=== PATIENT | female | born 1940 | race Caucasian/White ===

== ENCOUNTER 2019-11-28 13:43 | Emergency (ER) | payer MEDICARE ==
[2019-11-28 14:24] LABS: BASOPHILS # (AUTO) 0.1 10^3/uL (0.0-0.1); BASOPHILS % (AUTO) 0.5 %; EOSINOPHILS % (AUTO) 0.1 %; LYMPHOCYTES % (AUTO) 20.4 %; MEAN CORPUSCULAR HEMOGLOBIN 30.2 pg (27.0-31.0); MEAN CORPUSCULAR HGB CONC 34.2 g/dL (32.0-36.0); MEAN CORPUSCULAR VOLUME 88.5 fL (81.0-99.0); MEAN PLATELET VOLUME 10.2 fL (7.9-10.8); MONOCYTES # (AUTO) 0.7 10^3/uL (0.0-1.0); MONOCYTES % (AUTO) 6.7 %; NEUTROPHILS # (AUTO) 7.2 10^3/uL (1.5-6.6); PLT - PLATELET COUNT 302 10^3/uL (130-450); RED BLOOD COUNT 4.96 10^6/uL (4.20-5.40); RED CELL DISTRIBUTION WIDTH 12.8 % (12.0-15.0)
[2019-11-28] MEDS ORDERED: diltiaZEM INJ 5 MG/ML VIAL IVP STA (14:26)
[2019-11-28] MEDS ORDERED: PROCAINAMIDE 1,000 MG in SODIUM CHLORIDE 0.9% 240 ML IV STA (14:26)
--- NOTE | 2019-11-28 14:31 | ED Physician Documentation ---
History of Present Illness - Stated complaint Stated Complaint: INCREASE BP/RAPID HR - Chief complaint Chief Complaint: Cardiac - History obtained from History obtained from: Patient, Family - History of Present Illness Timing: Today Pain level max: 0 Pain level now: 0 Improved by: Nothing Worsened by: Nothing - Additonal information Additional information: Patient states that she was feeling "off" and took her blood pressure, noted that her heart rate was high. Has had atrial fibrillation with rapid ventricular response in the past. She did take her metoprolol this morning. She states that her heart rate was approximately 140 at home. No chest pain. No difficulty breathing. No nausea or vomiting. She is on Eliquis as well. She states that she is not usually in A. 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: None : None HEENT: None Psych: None Musculoskeletal: None - Past Surgical History Past Surgical History: Yes /SYNTHETIC FILAMENT SPINNER: Hysterectomy, Oophrectomy - Present Medications Home Medications: Ambulatory Orders Medication Instructions Recorded Confirmed Simvastatin 10 mg PO DAILY 06/09/15 08/13/15 lisinopriL [Lisinopril] 10 mg PO DAILY 06/09/15 08/13/15 - Allergies Allergies/Adverse Reactions: Allergies Allergy/AdvReac Type Severity Reaction Status Date / Time Penicillins Allergy Hives Verified 11/28/19 13:55 - Social History Does the pt smoke?: No Smoking Status: Former smoker Does the pt drink ETOH?: Yes Does the pt have substance abuse?: No - Immunizations Immunizations are current?: Yes - POLST Patient has POLST: No PD ED PE NORMAL - Vitals Vital signs reviewed: Yes - General General: Alert and oriented X 3, No acute distress - HEENT HEENT: Moist mucous membranes - Neck Neck: Supple, no meningeal sign - Cardiac Cardiac: Other (Tachycardic) - Respiratory Respiratory: No respiratory distress, Clear bilaterally - Abdomen Abdomen: Soft, Non tender, Non distended - Derm Derm: Warm and dry - Extremities Extremities: No edema - Neuro Neuro: Alert and oriented X 3 Results - Vitals Vitals: Vital Signs - 24 hr 11/28/19 11/28/19 11/28/19 13:50 14:22 14:30 Temperature 36.6 C 36.9 C Heart Rate 142 H 137 H 142 H Respiratory 24 18 18 Rate Blood Pressure 152/97 H 128/111 H 137/95 H O2 Saturation 98 96 97 11/28/19 11/28/19 11/28/19 14:49 15:00 15:10 Temperature Heart Rate 154 H 134 H 70 Respiratory 97 H 96 H 96 H Rate Blood Pressure 141/89 H 121/102 H 104/54 L O2 Saturation 18 L 14 L 10 L 11/28/19 11/28/19 11/28/19 15:20 15:30 15:40 Temperature Heart Rate 70 70 68 Respiratory 19 17 14 Rate Blood Pressure 101/60 99/69 115/59 L O2 Saturation 96 98 98 Oxygen O2 Source Room air - EKG (time done) 1521 Rate: Rate (enter#) (68) Rhythm: NSR [place]: Normal Intervals: Normal [place] QRS: Normal, LVH Ischemia: Normal ST segments 1356 Rate: Rate (enter#) (140) Rhythm: SVT [place]: Normal Intervals: Normal [place] QRS: Normal Ischemia: Normal ST segments - Labs Labs: Laboratory Tests 11/28/19 11/28/19 14:15 14:15 WBC 10.0 RBC 4.96 Hgb 15.0 Hct 43.9 MCV 88.5 MCH 30.2 MCHC 34.2 RDW 12.8 Plt Count 302 MPV 10.2 Neut # (Auto) 7.2 H Lymph # (Auto) 2.0 [place] # (Auto) 0.7 Eos # (Auto) 0.0 Baso # (Auto) 0.1 Absolute Nucleated RBC 0.00 Nucleated RBC % 0.0 Sodium 138 Potassium 3.8 Chloride 104 Carbon Dioxide 24 Anion Gap 10.0 BUN 10 Creatinine 0.5 Estimated GFR (MDRD) 118 Glucose 142 H Calcium 10.1 Total Bilirubin 0.6 AST 18 ALT 20 Alkaline Phosphatase 84 Total Protein 7.9 Albumin 4.5 Globulin 3.4 Albumin/Globulin Ratio 1.3 Lipase 33 PD MEDICAL DECISION MAKING - ED course Complexity details: reviewed results, re-evaluated patient, considered differential, d/w patient, d/w family ED course: Initial EKG looks like SVT, however likely a flutter with a 2-1 block. Patient converted with procainamide in the emergency department. No chest pain. No shortness of breath. Asymptomatic. We will have her continue her medications at home and follow-up with her doctor. Patient counseled regarding signs and symptoms for which I believe and urgent re-evaluation would be necessary. Patient with good understanding of and agreement to plan and is comfortable going home at this time This document was made in part using voice recognition software. While efforts are made to proofread this document, sound alike and grammatical errors may occur. Departure - Departure Disposition: 01 Home, Self Care Clinical Impression: Atrial fibrillation with RVR Condition: Good Instructions: ED Afib Follow-Up: THOMAS MULLEN [Primary Care Provider] - Within 1 week Comments: Continue your medications at home. Return if you worsen. Discharge Date/Time: 11/28/19 15:54
--- NOTE | 2019-11-28 14:31 | XRAY Report ---
Reason: Chest pain Procedure Date: 11/28/2019 Accession Number: [id number] / [id number] Procedure: XR - Chest 1 View X-Ray CPT Code: 98844 Final Report FULL RESULT: EXAM: CHEST RADIOGRAPHY EXAM DATE: 11/28/2019 02:19 PM. CLINICAL HISTORY: Chest pain. COMPARISON: 06/09/2015 1:48 AM. TECHNIQUE: 1 view. FINDINGS: Lungs/Pleura: No focal opacities evident. No pleural effusion. No pneumothorax. Mediastinum: Within exam limitations, the cardiomediastinal contour is normal. Other: None. IMPRESSION: Normal single view chest. RADIA
[2019-11-28 14:36] LABS: ALBUMIN 4.5 g/dL (3.2-5.5); ALBUMIN/GLOBULIN RATIO 1.3 (1.0-2.2); BILIRUBIN,TOTAL 0.6 mg/dL (0.2-1.0); CALCIUM 10.1 mg/dL (8.5-10.3); CREATININE 0.5 mg/dL (0.4-1.0); TOTAL PROTEIN 7.9 g/dL (6.7-8.2)
[2019-11-28 15:47] VITALS: BP 115/59
== END 2019-11-28 15:54 | disposition home or self-care (01) ==
LOC: ED 13:43
DX: I48.91 Unspecified atrial fibrillation (principal); Z79.01 Long term (current) use of anticoagulants; I10 Essential (primary) hypertension; Z87.891 Personal history of nicotine dependence
CPT/HCPCS: 36415; 71045; 80053; 83690; 85025; 93005; 96365; 96375; 99284; 99285; J2690; 84484

== ENCOUNTER 2021-01-05 19:37 | Emergency (ER) | payer MEDICARE, OTHER ==
[2021-01-05] MEDS ORDERED: ASPIRIN CHEW 81 MG TABLET PO STA (19:47)
--- NOTE | 2021-01-05 19:48 | ED Physician Documentation ---
PD HPI CHEST PAIN - Stated complaint Stated Complaint: CHEST TIGHTNESS - History obtained from History obtained from: Patient - Additional information Additional information: 80-year-old woman with history of paroxysmal atrial fibrillation but no coronary disease. She thinks she developed some chest pressure last night but it was more noticeable around noon today. She still has it just a bit. It radiated to the jaw and made her jaw feel tight. There was no shortness of breath with it but very mild nausea. This does not feel like prior episodes of A. fib. 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: Hysterectomy, Oophrectomy - Present Medications Home Medications: Ambulatory Orders Medication Instructions Recorded Confirmed Simvastatin 10 mg PO DAILY 06/09/15 08/13/15 lisinopriL [Lisinopril] 10 mg PO DAILY 06/09/15 08/13/15 - Allergies Allergies/Adverse Reactions: Allergies Allergy/AdvReac Type Severity Reaction Status Date / Time Penicillins Allergy Hives Verified 01/05/21 19:51 - Social History Does the pt smoke?: No Smoking Status: Former smoker Does the pt drink ETOH?: Yes Does the pt have substance abuse?: No - Immunizations Immunizations are current?: Yes - POLST Patient has POLST: No PD ED PE NORMAL - Vitals Vital signs reviewed: Yes - General General: Alert and oriented X 3, No acute distress - HEENT HEENT: PERRL, EOMI - Neck Neck: Supple, no meningeal sign, No bony TTP - Cardiac Cardiac: RRR, No murmur - Respiratory Respiratory: No respiratory distress, Clear bilaterally - Abdomen Abdomen: Normal bowel sounds, Soft, Non tender - Back Back: No CVA TTP, No spinal TTP - Derm Derm: Normal color, Warm and dry - Extremities Extremities: No edema, No calf tenderness / cord - Neuro Neuro: Alert and oriented X 3, Normal speech Results - Vitals Vitals: Vital Signs - 24 hr 01/05/21 01/05/21 01/05/21 19:45 20:21 20:30 Temperature 36.4 C L Heart Rate 82 60 60 Respiratory 17 12 12 Rate Blood Pressure 162/111 H 152/75 H 150/70 H O2 Saturation 100 98 98 Oxygen O2 Source Room air - EKG (time done) 194 Rate: Rate (enter#) (65) Rhythm: NSR [place]: Normal Intervals: Normal [place] QRS: LVH Ischemia: Non specific changes (Minimal nonischemic anterior J-point elevation, there is an RSR prime in V2, suspect a conduction delay on the right.) - Labs Labs: Laboratory Tests 01/05/21 01/05/21 01/05/21 19:48 19:48 20:17 WBC 9.0 RBC 4.61 Hgb 14.0 Hct 41.9 MCV 90.9 MCH 30.4 MCHC 33.4 RDW 12.9 Plt Count 319 MPV 10.3 Neut # (Auto) 4.7 Lymph # (Auto) 3.4 [place] # (Auto) 0.8 Eos # (Auto) 0.1 Baso # (Auto) 0.1 Absolute Nucleated RBC 0.00 Nucleated RBC % 0.0 Sodium 139 Potassium 3.8 Chloride 103 Carbon Dioxide 26 Anion Gap 10.0 BUN 9 Creatinine 0.6 Estimated GFR (MDRD) 96 Glucose 142 H Calcium 9.3 Total Bilirubin 0.6 AST 15 ALT 19 Alkaline Phosphatase 76 Troponin I High Sens 2.4 Total Protein 6.6 L Albumin 3.9 Globulin 2.7 Albumin/Globulin Ratio 1.4 Lipase 24 PD MEDICAL DECISION MAKING - ED course ED course: This is an 80-year-old woman presents with ongoing chest discomfort for the last 12+ hours. Her EKG is nonischemic and her troponin is actually on the low end of normal. Chest x-ray, single view was negative. She requested discharge and plans to call her senior user experience architect tomorrow. Understands that they may want to bring her down for a stress test. Also discussed that she needs to return if worsening or if new symptoms develop. Departure - Departure Disposition: 01 Home, Self Care Clinical Impression: Chest pain Qualifiers: Chest pain type: chest pain on breathing Qualified Code(s): R07.1 - Chest pain on breathing; R07.81 - Pleurodynia Condition: Good Record reviewed to determine appropriate education?: Yes Instructions: ED Chest Pain NonCardiac Comments: No objective evidence of recent or ongoing cardiac ischemia tonight. Your chest x-ray is normal. Your high-sensitivity troponin is 2.4 which is on the low end of normal. Your EKG was without evidence of acute heart issues. Follow-up with your senior user experience architect, suspect they may want to do a stress test on you. Until told otherwise by your senior user experience architect please take a baby aspirin a day. Return if pain recurs or changes or new symptoms develop.
[2021-01-05 20:01] LABS: BASOPHILS # (AUTO) 0.1 10^3/uL (0.0-0.1); BASOPHILS % (AUTO) 0.7 %; EOSINOPHILS # (AUTO) 0.1 10^3/uL (0.0-0.7); EOSINOPHILS % (AUTO) 1.2 %; LYMPHOCYTES # (AUTO) 3.4 10^3/uL (1.5-3.5); MEAN CORPUSCULAR HEMOGLOBIN 30.4 pg (27.0-31.0); MEAN CORPUSCULAR HGB CONC 33.4 g/dL (32.0-36.0); MEAN CORPUSCULAR VOLUME 90.9 fL (81.0-99.0); MEAN PLATELET VOLUME 10.3 fL (7.9-10.8); MONOCYTES # (AUTO) 0.8 10^3/uL (0.0-1.0); MONOCYTES % (AUTO) 8.4 %; NEUTROPHILS # (AUTO) 4.7 10^3/uL (1.5-6.6); NEUTROPHILS % (AUTO) 51.5 %; PLT - PLATELET COUNT 319 10^3/uL (130-450); RED BLOOD COUNT 4.61 10^6/uL (4.20-5.40); RED CELL DISTRIBUTION WIDTH 12.9 % (12.0-15.0)
--- NOTE | 2021-01-05 20:19 | XRAY Report ---
PROCEDURE: Chest 1 View X-Ray INDICATIONS: Chest Pain TECHNIQUE: One view of the chest was acquired. COMPARISON: 11/28/2019 FINDINGS: Surgical changes and devices: None. Lungs and pleura: No pleural effusions or pneumothorax. Lungs are clear. Mediastinum: Mediastinal contours appear normal. Heart size is normal. Bones and chest wall: No suspicious bony lesions. Overlying soft tissues appear unremarkable. IMPRESSION: No acute cardiopulmonary disease process. Reviewed by: Angeles Elaine MD, PhD on 01/05/2021 8:17 PM PST Approved by: Angeles Elaine MD, PhD on 01/05/2021 8:17 PM PST Station ID: [email or web address]
[2021-01-05 20:33] LABS: ALBUMIN 3.9 g/dL (3.2-5.5); ALBUMIN/GLOBULIN RATIO 1.4 (1.0-2.2); BILIRUBIN,TOTAL 0.6 mg/dL (0.2-1.0); CALCIUM 9.3 mg/dL (8.5-10.3); CREATININE 0.6 mg/dL (0.4-1.0); TOTAL PROTEIN 6.6 g/dL (6.7-8.2)
[2021-01-05 20:46] VITALS: BP 150/70
== END 2021-01-05 20:50 | disposition home or self-care (01) ==
LOC: ED 19:37
DX: R07.1 Chest pain on breathing (principal); R07.81 Pleurodynia; I10 Essential (primary) hypertension; Z87.891 Personal history of nicotine dependence
CPT/HCPCS: 36415; 71045; 80053; 83690; 84484; 85025; 93005; 99284; A9270

== ENCOUNTER 2021-06-18 21:37 | Emergency (ER) | payer MEDICARE ==
[2021-06-18] MEDS ORDERED: TRANEXAMIC ACID 1,000 MG/10 ML VIAL NAS STA (21:58)
--- NOTE | 2021-06-18 22:00 | ED Physician Documentation ---
History of Present Illness - Stated complaint Stated Complaint: BLOOD IN R EAR - Chief complaint Chief Complaint: Heent - Additonal information Additional information: 80-year-old female presents the emergency department for evaluation of bleeding from her right ear. She noted today that while she is wearing her hearing aid there was some discomfort with that but this evening when she took the hearing aid out she noticed that there was some blood on it and her granddaughter noted that there was bleeding coming from the ear canal. She believes that the wire to the hearing aid got trapped in her ear causing a cut. She does take Eliquis. She has no other sources of bleeding such as in the gums bowel urine or skin. Denies any falls or trauma. Denies ear pain or tinnitus. No dizziness. No chest pain or shortness of air. Review of Systems Constitutional: reports: Reviewed and negative Ears: reports: Other (Bleeding from the right ear canal) Nose: reports: Reviewed and negative Throat: reports: Reviewed and negative Cardiac: reports: Reviewed and negative Respiratory: reports: Reviewed and negative GI: reports: Reviewed and negative : reports: Reviewed and negative Skin: reports: Reviewed and negative PD PAST MEDICAL HISTORY - Past Medical History Cardiovascular: Hypertension, High cholesterol, Atrial fibrillation Respiratory: None Neuro: None Endocrine/Autoimmune: None GI: None MEDICAL REFERRAL COORDINATOR: None : None HEENT: None Psych: None Musculoskeletal: None - Past Surgical History Past Surgical History: Yes /MEDICAL REFERRAL COORDINATOR: Hysterectomy, Oophrectomy - Present Medications Home Medications: Ambulatory Orders Medication Instructions Recorded Confirmed lisinopriL [Lisinopril] 10 mg PO DAILY 06/09/15 08/13/15 Apixaban [Eliquis] 5 mg PO DAILY 06/18/21 06/18/21 Atorvastatin [Lipitor] 10 mg PO BID 06/18/21 06/18/21 Cyclosporine [Restasis Multidose] 1 drops EACHEYE BID 06/18/21 06/18/21 Metoprolol Tartrate [Lopressor] 25 mg PO BID 06/18/21 06/18/21 - Allergies Allergies/Adverse Reactions: Allergies Allergy/AdvReac Type Severity Reaction Status Date / Time Penicillins Allergy Hives Verified 06/18/21 21:40 - Social History Does the pt smoke?: No Smoking Status: Former smoker Does the pt drink ETOH?: Yes Does the pt have substance abuse?: No - Immunizations Immunizations are current?: Yes - POLST Patient has POLST: No PD ED PE EXPANDED - HEENT HEENT: No: Ears normal (Fresh bloody clot noted in right external auditory canal. Gently flushed with 10 mils of warm water. When clot was retrieved distal TM appears intact without effusion. There is superficial ulceration on the floor of the ear canal with active bleeding) Results - Vitals Vitals: Vital Signs - 24 hr 06/18/21 21:40 Temperature 36.5 C Heart Rate 69 Respiratory 16 Rate Blood Pressure 200/80 H O2 Saturation 98 Oxygen O2 Source Room air PD MEDICAL DECISION MAKING - ED course Complexity details: d/w patient ED course: 80-year-old female who is on Eliquis presents the emergency department for bleeding in her right ear canal. She inadvertently placed the wire to her hearing aid behind the hearing aid itself today causing a a deeper ulceration/laceration to the ear canal which is bleeding. Initially when we tried using simple trans-Vijaya acid in the ear canal to stop the bleeding but this was not effective. Ultimately some Gelfoam that was coated with bacitracin as well as trans-Vijaya acid was placed into the ear canal. I would like patient to return in the morning for a recheck to ensure that the bleeding has stopped. Likely at that time she would require antibiotic drops versus oral antibiotics. Departure - Departure Disposition: 01 Home, Self Care Clinical Impression: Laceration of right external auditory canal Qualifiers: Encounter type: initial encounter Qualified Code(s): S01.311A - Laceration without foreign body of right ear, initial encounter Condition: Stable Record reviewed to determine appropriate education?: Yes Comments: Ines you have a ulceration/laceration on the floor of your ear canal. The wire from your hearing aid was likely trapped in the ear causing this. Because you are on Eliquis it is difficult to get the bleeding to stop. I have placed a type of gel-foam in your ear canal along with some medication to hopefully get the bleeding to stop. I would like you to return to the ER tomorrow in the morning for us to really look at your ear canal. Do not wear the hearing aid in your right ear until this ulceration is fully healed which may take a number of weeks.
[2021-06-18] MEDS ORDERED: BACITRACIN ZINC OINT 1 PACKET TOP STA (22:07)
[2021-06-18 22:42] VITALS: BP 171/84
== END 2021-06-18 22:40 | disposition home or self-care (01) ==
LOC: ED 21:37
DX: S01.311A Laceration without foreign body of right ear, initial encounter (principal); W26.8XXA Contact with other sharp object(s), not elsewhere classified, initial encounter; Y92.009 Unspecified place in unspecified non-institutional (private) residence as the place of occurrence of the external cause; Z87.891 Personal history of nicotine dependence
CPT/HCPCS: 99281; 99282; A9270

== ENCOUNTER 2021-06-19 08:26 | Emergency (ER) | payer MEDICARE ==
[2021-06-19 09:00] VITALS: BP 194/88
--- NOTE | 2021-06-19 09:14 | ED Physician Documentation ---
PD HPI HEENT - Stated complaint Stated Complaint: F/U EAR BLEED - Chief complaint Chief Complaint: Heent - History obtained from History obtained from: Patient - Additional information Additional information: Pt returns to the emergency dept for recheck of R ear after laceration of ear canal with difficulty controlling bleeding yesterday. Pt is on Eliquis, and was seen in the ED, at which time Gelfoam and TXA were ultimately applied. There was still some oozing, so pt was asked to return to the ED for recheck this morning. Pt states she had some blood on the gauze overnight, but it was dry by morning, and she has not noticed any further bleeding. She is still taking her Eliquis, as directed. No other complaints. Review of Systems Ten Systems: 10 systems reviewed and negative Constitutional: reports: Reviewed and negative Eyes: reports: Reviewed and negative Ears: reports: Reviewed and negative Nose: reports: Reviewed and negative Throat: reports: Reviewed and negative Cardiac: reports: Reviewed and negative Respiratory: reports: Reviewed and negative GI: reports: Reviewed and negative : reports: Reviewed and negative Skin: reports: Reviewed and negative Musculoskeletal: reports: Reviewed and negative Neurologic: reports: Reviewed and negative Psychiatric: reports: Reviewed and negative Endocrine: reports: Reviewed and negative Immunocompromised: reports: Reviewed and negative PD PAST MEDICAL HISTORY - Past Medical History Cardiovascular: Hypertension, High cholesterol, Atrial fibrillation Respiratory: None Neuro: None Endocrine/Autoimmune: None GI: None 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 : None HEENT: None Psych: None Musculoskeletal: None - Past Surgical History Past Surgical History: Yes /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: Hysterectomy, Oophrectomy - Present Medications Home Medications: Ambulatory Orders Medication Instructions Recorded Confirmed lisinopriL [Lisinopril] 10 mg PO DAILY 06/09/15 06/19/21 Apixaban [Eliquis] 5 mg PO DAILY 06/18/21 06/19/21 Atorvastatin [Lipitor] 10 mg PO BID 06/18/21 06/19/21 Cyclosporine [Restasis Multidose] 1 drops EACHEYE BID 06/18/21 06/19/21 Metoprolol Tartrate [Lopressor] 25 mg PO BID 06/18/21 06/19/21 - Allergies Allergies/Adverse Reactions: Allergies Allergy/AdvReac Type Severity Reaction Status Date / Time Penicillins Allergy Hives Verified 06/19/21 09:00 - Social History Does the pt smoke?: No Smoking Status: Former smoker Does the pt drink ETOH?: Yes Does the pt have substance abuse?: No - Immunizations Immunizations are current?: Yes - POLST Patient has POLST: No PD ED PE NORMAL - Vitals Vital signs reviewed: Yes - General General: Alert and oriented X 3, No acute distress - HEENT HEENT: Atraumatic, PERRL, EOMI, Moist mucous membranes, Other (Blood-soaked Gelfoam in place in R EAC. BLood appears congealed and no fresh/wet bleed noted .) - Neck Neck: Supple, no meningeal sign - Respiratory Respiratory: No respiratory distress - Derm Derm: Warm and dry - Extremities Extremities: No deformity - Neuro Neuro: Alert and oriented X 3 - Psych Psych: Normal mood, Normal affect Results - Vitals Vitals: Oxygen O2 Source Room air PD MEDICAL DECISION MAKING - ED course Complexity details: considered differential, d/w patient ED course: I d/w pt that ear looks good, and Gelfoam should be left in place until it is ready to come out. If after 7 days, it is still in place, pt may take tweezers and try to gently wiggle it out from the end. She may try moistening it to assist with this. If gentle wiggling/traction doesn't work, she should follow up with ENT to have them do it. She understands that she should continue her Eliquis. We have discussed the usual indications for return. Departure - Departure Disposition: 01 Home, Self Care Clinical Impression: Laceration of ear Qualifiers: Encounter type: initial encounter Laterality: right Qualified Code(s): S01.311A - Laceration without foreign body of right ear, initial encounter Condition: Stable Follow-Up: Jayy Tate MD [Physician No Access] - Comments: Your ear canal does not show any signs of active bleeding. The Gelfoam has done what is supposed to do, which is to soak up the blood and form a clot-like substance. This has stopped the bleeding and should be left in place until it falls out on its own. If after a week, the Gelfoam has not come out on its own, you may take a pair of tweezers and gently tug at it. Sometimes it helps to get it wet first. If you still cannot get it out by gentle wiggling and tugging with the tweezers, then please follow-up in the ear nose throat clinic and have them take a look at it. You should continue your Eliquis as usual. If you have any further issues with the bleeding, please return to the emergency department Discharge Date/Time: 06/19/21 09:19
== END 2021-06-19 09:19 | disposition home or self-care (01) ==
LOC: ED 08:26
DX: S01.311D Laceration without foreign body of right ear, subsequent encounter (principal); Z87.891 Personal history of nicotine dependence; Z79.01 Long term (current) use of anticoagulants

== ENCOUNTER 2021-07-07 15:40 | Outpatient (CLI) | payer MEDICARE | END 2021-07-07 15:41 | disposition home or self-care (01) | LOC: COV 15:40 | PROVIDERS: ATTEND Family Medicine | DX: U07.1 COVID-19 (principal) ==

== ENCOUNTER 2021-09-02 12:42 | Outpatient (CLI) | payer MEDICARE | END 2021-09-02 12:43 | disposition critical access hospital (66) | LOC: EMS 12:42 | DX: R07.9 Chest pain, unspecified (principal) | CPT/HCPCS: A0425; A0427 ==

== ENCOUNTER 2021-09-02 13:21 | Emergency (ER) | payer MEDICARE ==
--- NOTE | 2021-09-02 13:33 | ED Physician Documentation ---
PD HPI CHEST PAIN - Stated complaint Stated Complaint: CHEST PX - Chief complaint Chief Complaint: Cardiac - History obtained from History obtained from: Patient, EMS - History of Present Illness Timing - onset: Enter time (1600), Yesterday Timing - onset during: Rest Timing - duration: Hours (4) Timing - details: Abrupt onset, Now resolved Pain level max: 5 Pain level now: 0 Quality: Sharp, Pain Location: Substernal, Right chest Radiation: No: Jaw, Neck, Back, Abdominal, Left upper extremity, Right upper extremity Improved by: Nitro, ASA Worsened by: No: Exertion, Inspiration, Eating, Movement, Palpation, Position Associated symptoms: No: Shortness of air, Diaphoresis, Nausea, Vomiting, Feeling faint / dizzy, General Weakness, Palpitations, Cough Similar symptoms before: Has not had sx before Recently seen: Not recently seen - Additional information Additional information: Previously well 80-year-old female with a history of paroxysmal atrial fibrillation who is on Eliquis has developed some pain in the right upper chest yesterday afternoon while sitting on her couch. She chalked this up to the gardening she had done earlier in the day and eventually in the evening she took her evening medications including metoprolol and she felt that that resolved her pain. She woke this morning feeling well and this afternoon has had another episode of this pain similar area without radiation without diaphoresis nausea or dizziness or lightheadedness. Review of Systems Constitutional: reports: Fatigue. denies: Fever Eyes: denies: Decreased vision Ears: denies: Ear pain Nose: denies: Congestion Throat: denies: Sore throat Cardiac: reports: Chest pain / pressure. 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 : None HEENT: None Psych: None Musculoskeletal: None - Past Surgical History 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 Surgical History: 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: Hysterectomy, Oophrectomy - Present Medications Home Medications: Ambulatory Orders Medication Instructions Recorded Confirmed lisinopriL [Lisinopril] 10 mg PO DAILY 06/09/15 06/19/21 Apixaban [Eliquis] 5 mg PO DAILY 06/18/21 06/19/21 Atorvastatin [Lipitor] 10 mg PO BID 06/18/21 06/19/21 Cyclosporine [Restasis Multidose] 1 drops EACHEYE BID 06/18/21 06/19/21 Metoprolol Tartrate [Lopressor] 25 mg PO BID 06/18/21 06/19/21 - Allergies Allergies/Adverse Reactions: Allergies Allergy/AdvReac Type Severity Reaction Status Date / Time Penicillins Allergy Hives Verified 09/02/21 13:28 - Social History Does the pt smoke?: No Smoking Status: Former smoker Does the pt drink ETOH?: Yes Does the pt have substance abuse?: No - Immunizations Immunizations are current?: Yes - POLST Patient has POLST: No PD ED PE NORMAL - Vitals Vital signs reviewed: Yes (hypertensive) - General General: Alert and oriented X 3, No acute distress, Well developed/nourished - HEENT HEENT: Atraumatic, PERRL, EOMI - Neck Neck: Supple, no meningeal sign, No bony TTP - Cardiac Cardiac: RRR, No murmur - Respiratory Respiratory: No respiratory distress, Clear bilaterally, Other (no chest wall tenderness ) - Abdomen Abdomen: Soft, Non tender - Back Back: No CVA TTP, No spinal TTP - Derm Derm: Normal color, Warm and dry, No rash - Extremities Extremities: No deformity, No edema - Neuro Neuro: Alert and oriented X 3, cvor nurse 2-12 intact, No motor deficit, No sensory deficit, Normal speech Eye Opening: Spontaneous Motor: Obeys Commands Verbal: Oriented GCS Score: 15 - Psych Psych: Normal mood, Normal affect Results - Vitals Vitals: Vital Signs - 24 hr 09/02/21 09/02/21 09/02/21 13:24 14:34 15:08 Temperature 36.9 C Heart Rate 73 86 62 Respiratory 14 25 H 14 Rate Blood Pressure 219/89 H 139/59 H 133/62 H O2 Saturation 98 98 100 Oxygen O2 Source Room air - EKG (time done) 1322 Rate: Rate (enter#) (66) Rhythm: NSR Intervals: Normal [place] Ischemia: Normal ST segments, Q waves (1,aVL) Compare to prior EKG: Changed from prior EKG (SPT 01-05-21 the tracing no longer makes criteria for LVH) Computer interpretation: Disagree with computer (I do not see q-waves in V5/6 ) - Labs Labs: Laboratory Tests 09/02/21 09/02/21 09/02/21 13:42 13:42 13:42 WBC 6.9 RBC 4.39 Hgb 13.3 Hct 39.5 MCV 90.0 MCH 30.3 MCHC 33.7 RDW 12.8 Plt Count 260 MPV 10.0 Neut # (Auto) 4.7 Lymph # (Auto) 1.7 [place] # (Auto) 0.4 Eos # (Auto) 0.1 Baso # (Auto) 0.1 Absolute Nucleated RBC 0.00 Nucleated RBC % 0.0 Sodium 131 L Potassium 4.0 Chloride 98 L Carbon Dioxide 25 Anion Gap 8.0 BUN 9 Creatinine 0.5 Estimated GFR (MDRD) 118 Glucose 102 H Calcium 9.1 Total Bilirubin 0.9 AST 17 ALT 16 Alkaline Phosphatase 85 Troponin I High Sens 2.8 Total Protein 7.1 Albumin 4.4 Globulin 2.7 Albumin/Globulin Ratio 1.6 Lipase 29 Urine Color Urine Clarity Urine pH Ur Specific [place] Urine Protein Urine Glucose (UA) Urine Ketones Urine Occult Blood Urine Nitrite Urine Bilirubin Urine Urobilinogen Ur Leukocyte Esterase Urine RBC Urine WBC Urine WBC Clumps Ur Squamous Epith Cells Urine Bacteria Ur Microscopic Review Urine Culture Comments 09/02/21 14:29 WBC RBC Hgb Hct MCV MCH MCHC RDW Plt Count MPV Neut # (Auto) Lymph # (Auto) [place] # (Auto) Eos # (Auto) Baso # (Auto) Absolute Nucleated RBC Nucleated RBC % Sodium Potassium Chloride Carbon Dioxide Anion Gap BUN Creatinine Estimated GFR (MDRD) Glucose Calcium Total Bilirubin AST ALT Alkaline Phosphatase Troponin I High Sens Total Protein Albumin Globulin Albumin/Globulin Ratio Lipase Urine Color YELLOW Urine Clarity CLOUDY Urine pH 6.5 Ur Specific [place] 1.010 Urine Protein NEGATIVE Urine Glucose (UA) NEGATIVE Urine Ketones NEGATIVE Urine Occult Blood NEGATIVE Urine Nitrite POSITIVE H Urine Bilirubin NEGATIVE Urine Urobilinogen 0.2 (NORMAL) Ur Leukocyte Esterase MODERATE H Urine RBC None Seen Urine WBC >25 H Urine WBC Clumps PRESENT Ur Squamous Epith Cells RARE Squamous Urine Bacteria Many H Ur Microscopic Review INDICATED Urine Culture Comments INDICATED - Rads (name of study) chest Radiology: Prelim report reviewed (Impression: 1. No acute cardiopulmonary abnormality.), EMP read indepedently, See rad report PD MEDICAL DECISION MAKING - ED course Complexity details: reviewed old records, reviewed results, re-evaluated patient, considered differential, d/w patient ED course: 80-year-old female with a 4-5 out of 10 right-sided chest pain has had resolution of her symptoms and in the emergency department has a nondiagnostic electrocardiogram and blood work that is reassuring the unremarkable. She has no symptoms now. She has had symptoms four hours yesterday and 1 hours today. Departure - Departure Disposition: Home, Self Care Clinical Impression: Atypical chest pain Condition: Stable Instructions: ED Chest Pain Atypical Unkn Cause Follow-Up: THOMAS MULLEN [Primary Care Provider] - Discharge Date/Time: 09/02/21 15:14
--- NOTE | 2021-09-02 13:45 | XRAY Report ---
PROCEDURE: Chest 1 View X-Ray INDICATIONS: chest pain TECHNIQUE: One view of the chest was acquired. COMPARISON: January 05, 2021 FINDINGS: SUPPORT DEVICES: None. LUNG/PLEURA: No focal consolidation or pulmonary edema. No pleural effusion or space-occupying pneumo thorax. MEDIASTINUM: The cardiomediastinal silhouette is within normal limits. BONES/SOFT TISSUES: No acute abnormality. Irregularity of the left humeral head, which may reflect Hi ll-Sachs deformity. IMPRESSION: 1.No acute cardiopulmonary abnormality. Reviewed by: Olegario Meléndez MD on 09/02/2021 1:44 PM PDT Approved by: Olegario Meléndez MD on 09/02/2021 1:44 PM PDT Station ID: [id number]
[2021-09-02 13:52] LABS: BASOPHILS # (AUTO) 0.1 10^3/uL (0.0-0.1); BASOPHILS % (AUTO) 0.7 %; EOSINOPHILS # (AUTO) 0.1 10^3/uL (0.0-0.7); EOSINOPHILS % (AUTO) 0.9 %; HCT - HEMATOCRIT 39.5 % (37.0-47.0); HGB - HEMOGLOBIN 13.3 g/dL (12.0-16.0); LYMPHOCYTES # (AUTO) 1.7 10^3/uL (1.5-3.5); LYMPHOCYTES % (AUTO) 23.9 %; MEAN CORPUSCULAR HEMOGLOBIN 30.3 pg (27.0-31.0); MEAN CORPUSCULAR HGB CONC 33.7 g/dL (32.0-36.0); MONOCYTES # (AUTO) 0.4 10^3/uL (0.0-1.0); MONOCYTES % (AUTO) 6.2 %; NEUTROPHILS # (AUTO) 4.7 10^3/uL (1.5-6.6); PLT - PLATELET COUNT 260 10^3/uL (130-450); RED BLOOD COUNT 4.39 10^6/uL (4.20-5.40); RED CELL DISTRIBUTION WIDTH 12.8 % (12.0-15.0); WHITE BLOOD COUNT 6.9 x10^3/uL (4.8-10.8)
[2021-09-02 14:02] LABS: ALBUMIN 4.4 g/dL (3.2-5.5); ALBUMIN/GLOBULIN RATIO 1.6 (1.0-2.2); BILIRUBIN,TOTAL 0.9 mg/dL (0.2-1.0); CALCIUM 9.1 mg/dL (8.5-10.3); CREATININE 0.5 mg/dL (0.4-1.0); TOTAL PROTEIN 7.1 g/dL (6.7-8.2)
[2021-09-02 15:00] LABS: BILIRUBIN,URINE NEGATIVE (NEGATIVE); GLUCOSE, URINE (UA) NEGATIVE (NEGATIVE); KETONES,URINE (UA) NEGATIVE (NEGATIVE); LEUKOCYTE ESTERASE, URINE MODERATE (NEGATIVE); NITRITE,URINE POSITIVE (NEGATIVE); OCCULT BLOOD,URINE NEGATIVE (NEGATIVE); PH,URINE 6.5 PH (5.0-7.5); PROTEIN,URINE NEGATIVE (NEGATIVE); UROBILINOGEN,URINE 0.2 (NORMAL) E.U./dL (NORMAL)
[2021-09-02 15:09] VITALS: BP 133/62
[2021-09-02 15:34] LABS: CLARITY,URINE CLOUDY (CLEAR)
[2021-09-02 15:37] LABS: BACTERIA,URINE Many /HPF (None Seen); RBC,URINE None Seen /HPF (0-5); SQUAMOUS EPITHELIAL CELL,UR RARE Squamous (<= Few); WBC CLUMPS,URINE PRESENT; WBC,URINE >25 /HPF (0-5)
--- NOTE | 2021-09-04 15:34 | ED Physician Documentation ---
ED Addendum - Addendum Addendum: 09/04/21 15:33 The patient's urine culture came back showing E. coli greater than 100,000. The patient is allergic to penicillin. She is on Eliquis. It is sensitive to cephalosporins so I will treat with Keflex 500 mg 3 times a day for 5 days. Nursing will call in the prescription.
== END 2021-09-02 15:14 | disposition home or self-care (01) ==
LOC: EDUNIT# → ED 13:21
DX: R07.89 Other chest pain (principal); R53.83 Other fatigue; R82.71 Bacteriuria; B96.20 Unspecified Escherichia coli [E. coli] as the cause of diseases classified elsewhere; Z88.0 Allergy status to penicillin; I10 Essential (primary) hypertension; I48.0 Paroxysmal atrial fibrillation; Z79.01 Long term (current) use of anticoagulants; Z87.891 Personal history of nicotine dependence
CPT/HCPCS: 36415; 80053; 81001; 81003; 83690; 84484; 85025; 87086; 87181; 93005; 99284

== ENCOUNTER 2022-12-16 00:15 | Emergency (ER) | payer MEDICARE, OTHER ==
--- NOTE | 2022-12-16 01:00 | ED Physician Documentation ---
PD HPI LOWER EXT INJURY - Stated complaint Stated Complaint: LT FOOT DISCOLORATION - Chief complaint Chief Complaint: Ext Problem - History obtained from History obtained from: Patient - History of Present Illness PD HPI LOW EXT INJURY LOCATION: Left, Knee, Lower leg, Ankle, Foot Timing - details: Abrupt onset Contributing factors: Anticoagulated - Additional information Additional information: HPI from patient. Chief complaint is LLE swelling and discoloration. Approximately 10 days ago while walking, without particular inciting factor, she had sudden severe pain left knee when she bore weight on LLE. She was evaluated in outpatient setting, had xrays which patient says were unremarkable. She did not fall nor did anything strike the knee. She was able to weight bear albeit with increased pain, but gradually she has had decreasing pain and now is able to fully weight bear without pain. She notes that since the incident, her leg has become increasingly swollen from the left knee down (to foot), with discoloration of the thigh and lower leg as if bruised, and tonight she noticed blue discoloration immediately distal to left medial and lateral malleoli as well as dorsal surface of foot. Patient's medications include eliquis, which she takes for atrial fibrillation. Review of Systems Constitutional: denies: Fever Cardiac: reports: Pedal edema. 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: Hysterectomy, Oophrectomy - Present Medications Home Medications: Ambulatory Orders Medication Instructions Recorded Confirmed lisinopriL [Lisinopril] 10 mg PO DAILY 06/09/15 12/16/22 Apixaban [Eliquis] 5 mg PO DAILY 06/18/21 12/16/22 Atorvastatin [Lipitor] 10 mg PO BID 06/18/21 12/16/22 Cyclosporine [Restasis Multidose] 1 drops EACHEYE BID 06/18/21 12/16/22 Metoprolol Tartrate [Lopressor] 25 mg PO BID 06/18/21 12/16/22 - Allergies Allergies/Adverse Reactions: Allergies Allergy/AdvReac Type Severity Reaction Status Date / Time Penicillins Allergy Hives Verified 12/16/22 00:28 - Social History Does the pt smoke?: No Smoking Status: Never smoker Does the pt drink ETOH?: Yes Does the pt have substance abuse?: No - Immunizations Immunizations are current?: Yes - POLST Patient has POLST: No PD ED PE NORMAL - Vitals Vital signs reviewed: Yes - General General: Alert and oriented X 3, No acute distress, Well developed/nourished PD ED PE EXPANDED - Extremities Extremities: Pedal edema L, Pedal Pulses Present, Motor intact, Sensory intact, Vascular intact DURGA LE visual: 1 - swelling (circumferential swelling. no significant TTP. yellow discolorati on of most of the marked area c/w echymosis that is several days old, with dark blue/purple discoloration distal to medial/lateral malleoli and dorsal surface of foot.) Results - Vitals Vitals: Oxygen O2 Source Room air - Rads (name of study) LLE doppler US Radiology: Prelim report reviewed, See rad report PD Medical Decision Making - ED course Complexity details: reviewed results, re-evaluated patient, considered differential, d/w patient ED course: Unfortunately, patient presented to ED shortly after hospitality intern had gone home, and US not available from 00:00 until 06:00. I suspect ruptured diehl's cyst; I believe this would explain the sudden onset knee pain 10 days ago, the subsequent swelling, the discoloration strongly c/w ecchymosis being broken down. Given that she is on eliquis, would expect more bleeding than if she were not anticoagulated, which could thus explain the atypical extent of the amount of swelling. The bruising tracking down to the malleoli would be particularly c/w ruptured diehl's cyst. However, without US, it would be possible that the swelling represents DVT, which would present a complicating dilemma regarding treatment, as she is already taking eliquis (otherwise, I would offer Lovenox IM and return in AM for US). I discussed my concerns with patient regarding DVT and need for US for this. Of course, since a dose of lovenox would be inappropriate while on eliquis, one option would be to go home and return in the morning , but she would have to reregister and an unpredictable wait time. She opts to stay in ED overnight and will have the US in the AM. The US shows no evidence of DVT. While there is no diehl's cyst noted, it would seem logical that, if she had a rupture of a diehl's cyst 10 days ago, there is no residual visible cystic structure , having decompressed after draining its contents. Departure - Departure Disposition: 01 Home, Self Care Clinical Impression: Peripheral edema, Ruptured Bakers cyst Condition: Good Instructions: Cyst Popliteal Comments: There were no abnormalities found on the ultrasound performed on your leg. As we discussed, I suspect you might have had a Bakers cyst that has ruptured. The radiologist specifically commented that they do not see any evidence of a Diehl's cyst, but given the swelling and the bruising from the knee down to the ankle and foot, it is possible that you had a Diehl's cyst and that now that it has ruptured and drained of fluid and blood, it is no longer visible. The most important aspect of your visit to the emergency department today is that a DVT (deep vein thrombosis, a blood clot in the deep veins of the leg) has been effectively ruled out with the ultrasound. As we discussed, you should keep the leg elevated when you are at home at rest. I recommend you follow-up with your primary care provider within the next week for reevaluation of the leg. It will probably take 1 to 2 weeks for the swellin g and the bruising to resolve. Discharge Date/Time: 12/16/22 08:32
--- NOTE | 2022-12-16 08:03 | Ultrasound Report ---
PROCEDURE: Duplex Ext Veins Left INDICATIONS: swelling, pain, no trauma TECHNIQUE: Real-time imaging, as well as color and pulse Doppler interrogation, were performed of the lower extr emity deep veins from the inguinal ligament to the popliteal fossa. COMPARISON: None. FINDINGS: The deep veins are normally compressible, and free of intraluminal thrombus. Color and pu lse Doppler demonstrate normal phasic intraluminal flow. There is normal augmentation response to di stal compression maneuver. IMPRESSION: No deep venous thrombosis. The above findings are concordant with preliminary report. Reviewed by: Cristiane Hernandez MD on 12/16/2022 8:02 AM PST Approved by: Cristiane Hernandez MD on 12/16/2022 8:02 AM PST Station ID: [id number]
[2022-12-16 08:25] VITALS: BP 167/80
== END 2022-12-16 08:32 | disposition home or self-care (01) ==
LOC: ED 00:15
DX: M66.0 Rupture of popliteal cyst (principal); I10 Essential (primary) hypertension; I48.91 Unspecified atrial fibrillation; Z79.01 Long term (current) use of anticoagulants
CPT/HCPCS: 99283; 99284

== ENCOUNTER 2022-12-21 04:19 | Outpatient (CLI) | payer MEDICARE | END 2022-12-21 04:20 | disposition critical access hospital (66) | LOC: EMS 04:19 | DX: I48.91 Unspecified atrial fibrillation (principal); R07.9 Chest pain, unspecified | CPT/HCPCS: A0425; A0427 ==

== ENCOUNTER 2022-12-21 04:54 | Emergency (ER) | payer MEDICARE ==
[2022-12-21] MEDS ORDERED: METOPROLOL 5 MG/5 ML VIAL IVP STA (05:01)
[2022-12-21] MEDS ORDERED: SODIUM CHLORIDE 0.9% 1,000 ML IV STA (05:03)
[2022-12-21] MEDS ORDERED: PROCAINAMIDE IV STA ×2 (05:18→05:21)
[2022-12-21] MEDS ORDERED: SODIUM CHLORIDE 0.9% IV STA ×2 (05:18→05:21)
[2022-12-21] MEDS ORDERED: PROCAINAMIDE 1,000 MG/10 ML SYRINGE ONE (05:24)
--- NOTE | 2022-12-21 05:29 | ED Physician Documentation ---
History of Present Illness - Stated complaint Stated Complaint: AFIB - Chief complaint Chief Complaint: Cardiac - History obtained from History obtained from: Patient, EMS - Additonal information Additional information: The patient comes to the emergency department with chief complaint of waking up with heart racing. She has a history of paroxysmal atrial fibrillation, and states she has not had an episode in a couple of years. She was in bed when she awakened to find that her heart was pounding very fast. She states that she took a rescue dose of her metoprolol, and had been told by her claims associate Dr. Guy that if she got a metallic taste in her mouth within 30 minutes, she should take a dose of her nitroglycerin. Patient states she did not have any chest pain but that she did take the dose of nitroglycerin. Neither 1 of these medications seem to help at all. Medics state that when they got there, the patient had a heart rate of 230. They initially gave her 15 mg of Cardizem, which did bring her heart rate down some, but she was still quite tacky so they gave her another 22 mg. This brought the patient down into the 130s. The patient states she feels quite a bit better but can still feel her heart pounding a little. The patient takes Eliquis daily. She denies any coronary artery disease. She states she has otherwise been feeling well and has no other complaints. 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: Hysterectomy, Oophrectomy - Present Medications Home Medications: Ambulatory Orders Medication Instructions Recorded Confirmed lisinopriL [Lisinopril] 30 mg PO DAILY 06/09/15 12/16/22 Apixaban [Eliquis] 5 mg PO DAILY 06/18/21 12/21/22 Atorvastatin [Lipitor] 10 mg PO BID 06/18/21 12/21/22 Cyclosporine [Restasis Multidose] 1 drops EACHEYE BID 06/18/21 12/16/22 Metoprolol Tartrate [Lopressor] 25 mg PO BID 06/18/21 12/21/22 - Allergies Allergies/Adverse Reactions: Allergies Allergy/AdvReac Type Severity Reaction Status Date / Time Penicillins Allergy Hives Verified 12/21/22 05:02 - Social History Does the pt smoke?: No Smoking Status: Never smoker Does the pt drink ETOH?: Yes Does the pt have substance abuse?: No - Immunizations Immunizations are current?: Yes - POLST Patient has POLST: No PD ED PE NORMAL - Vitals Vital signs reviewed: Yes - General General: Alert and oriented X 3, No acute distress, Well developed/nourished - HEENT HEENT: Atraumatic, PERRL, EOMI, Moist mucous membranes - Neck Neck: Supple, no meningeal sign - Cardiac Cardiac: No murmur, Strong equal pulses, Other (Irregular rate and rhythm, tachycardic) - Respiratory Respiratory: No respiratory distress, Clear bilaterally - Abdomen Abdomen: Soft, Non tender, Non distended - Derm Derm: Normal color, Warm and dry, No rash - Extremities Extremities: No deformity, No edema, No calf tenderness / cord - Neuro Neuro: Alert and oriented X 3, Other (Grossly intact) - Psych Psych: Normal mood, Normal affect Results - Vitals Vitals: Oxygen O2 Source Room air - EKG (time done) 0458 Rate: Rate (enter#) (151) Rhythm: Atrial fibrillation [place]: Normal QRS: Poor R wave progression (Abnormal R wave progression, early transition) Ischemia: ST depression (Likely rate related) 0638 Rate: Rate (enter#) (67) Rhythm: NSR [place]: Normal Intervals: Normal [place] QRS: Poor R wave progression (Abnormal R wave progression, early transition) Ischemia: ST elevation c/w repol Compare to prior EKG: Changed from prior EKG (Tachycardia and A-fib resolved) Computer interpretation: Agree with computer - Labs Labs: Laboratory Tests 12/21/22 12/21/22 05:32 05:32 WBC 7.6 RBC 4.20 Hgb 12.5 Hct 38.2 MCV 91.0 MCH 29.8 MCHC 32.7 RDW 12.9 Plt Count 319 MPV 10.0 Neut # (Auto) 5.7 Lymph # (Auto) 1.3 [place] # (Auto) 0.5 Eos # (Auto) 0.1 Baso # (Auto) 0.0 Absolute Nucleated RBC 0.00 Nucleated RBC % 0.0 Sodium 137 Potassium 3.4 L Chloride 104 Carbon Dioxide 21 Anion Gap 12.0 BUN 8 Creatinine 0.5 Estimated GFR (MDRD) 118 Glucose 118 H Calcium 8.8 Total Bilirubin 0.8 AST 19 ALT 16 Alkaline Phosphatase 85 Total Protein 6.6 L Albumin 3.6 Globulin 3.0 Albumin/Globulin Ratio 1.2 Lipase 27 PD Medical Decision Making - ED course Complexity details: reviewed old records, reviewed results, re-evaluated patient, considered differential, d/w patient ED course: The patient was very well-appearing upon her arrival in the emergency department, and her heart rate had improved significantly to the 130s after about 37 mg diltiazem. The patient had already taken some p.o. metoprolol, and since the diltiazem so far had only been partially effective, I decided to give the patient a dose of metoprolol 10 mg. This was given and did slow the heart rate slightly, but the patient still was in A-fib with RVR from the 120s to 140s. On review of the patient's records, I found the patient had responded well to procainamide previously, and I did order a drip to be mixed with 17 mg/kg of procainamide for the patient. This was run at a rate of 20 mg/min. The patient was noted about 10 minutes later to have converted to normal sinus rhythm. She reported feeling better and I felt she was stable for discharge home. I have advised her to continue taking her medications and to follow-up with Dr. Guy if she begins to have increasingly frequent episodes of A-fib. We have discussed the usual indications for return. Departure - Departure Disposition: 01 Home, Self Care Clinical Impression: Atrial fibrillation Qualifiers: Atrial fibrillation type: paroxysmal Qualified Code(s): I48.0 - Paroxysmal atrial fibrillation Condition: Stable Instructions: ED Afib Comments: Your heart rhythm has converted to normal again. You may continue to take your normal medications at home, and should follow-up with your claims associate if you begin to notice that your episodes of A-fib are becoming closer together and more frequent. Please drink plenty of fluids and get some rest today. If you begin to experience the sensation of your heart pounding again, or develop any other concerning symptoms, please return to the emergency department. Discharge Date/Time: 12/21/22 07:13
[2022-12-21 05:47] LABS: BASOPHILS % (AUTO) 0.5 %; EOSINOPHILS # (AUTO) 0.1 10^3/uL (0.0-0.7); EOSINOPHILS % (AUTO) 0.8 %; HCT - HEMATOCRIT 38.2 % (37.0-47.0); HGB - HEMOGLOBIN 12.5 g/dL (12.0-16.0); LYMPHOCYTES # (AUTO) 1.3 10^3/uL (1.5-3.5); MEAN CORPUSCULAR HEMOGLOBIN 29.8 pg (27.0-31.0); MEAN CORPUSCULAR HGB CONC 32.7 g/dL (32.0-36.0); MONOCYTES # (AUTO) 0.5 10^3/uL (0.0-1.0); MONOCYTES % (AUTO) 6.1 %; NEUTROPHILS # (AUTO) 5.7 10^3/uL (1.5-6.6); NEUTROPHILS % (AUTO) 75.3 %; PLT - PLATELET COUNT 319 10^3/uL (130-450); RED CELL DISTRIBUTION WIDTH 12.9 % (12.0-15.0); WHITE BLOOD COUNT 7.6 x10^3/uL (4.8-10.8)
[2022-12-21 06:00] LABS: ALBUMIN 3.6 g/dL (3.2-5.5); ALBUMIN/GLOBULIN RATIO 1.2 (1.0-2.2); BILIRUBIN,TOTAL 0.8 mg/dL (0.2-1.0); CALCIUM 8.8 mg/dL (8.5-10.3); CREATININE 0.5 mg/dL (0.4-1.0); POTASSIUM 3.4 mmol/L (3.5-5.0); TOTAL PROTEIN 6.6 g/dL (6.7-8.2)
[2022-12-21 07:12] VITALS: BP 124/86
== END 2022-12-21 07:13 | disposition home or self-care (01) ==
LOC: EDUNIT# → ED 04:54
DX: I48.0 Paroxysmal atrial fibrillation (principal); Z79.01 Long term (current) use of anticoagulants
CPT/HCPCS: 36415; 80053; 83690; 85025; 93005; 96365; 96375; 99283; 99285; J2690

== ENCOUNTER 2023-06-10 08:00 | Outpatient (CLI) | payer MEDICARE, OTHER ==
--- NOTE | 2023-06-10 23:33 | XRAY Report ---
PROCEDURE: Knee 4 View RT INDICATIONS: RIGHT KNEE PAIN TECHNIQUE: 4 views of the right knee(s) were acquired. COMPARISON: None. FINDINGS: Bones: No fractures or dislocations. No suspicious bony lesions. Medial compartment joint space piero rowing. Small marginal osteophytes. Soft tissues: Small knee joint effusion. No suspicious soft tissue calcifications or masses. IMPRESSION: Predominantly medial compartment arthritic changes. No fracture Reviewed by: Ld Figueroa MD on 06/10/2023 10:32 PM AKDT Approved by: Ld Figueroa MD on 06/10/2023 10:32 PM AKDT Station ID: [id number]
== END 2023-06-10 23:59 | disposition home or self-care (01) ==
LOC: DI.WOS 08:00
PROVIDERS: ATTEND Physician Assistant Surgical
DX: M17.11 Unilateral primary osteoarthritis, right knee (principal)

== ENCOUNTER 2023-12-22 00:51 | Outpatient (CLI) | payer OTHER | END 2023-12-22 00:52 | disposition critical access hospital (66) | LOC: EMS 00:51 | DX: I48.91 Unspecified atrial fibrillation (principal) | CPT/HCPCS: A0425; A0427 ==

== ENCOUNTER 2023-12-22 01:22 | Emergency (ER) | payer MEDICARE, OTHER ==
[2023-12-22] MEDS ORDERED: diltiaZEM INJ 5 MG/ML VIAL ONE ×2 (01:26→02:13)
[2023-12-22] MEDS: diltiaZEM INJ 5 MG/ML VIAL IVP STA ×2 (01:28→02:15)
--- NOTE | 2023-12-22 01:28 | ED Physician Documentation ---
History of Present Illness - Stated complaint Stated Complaint: AFIB - History obtained from History obtained from: Patient, EMS - Additonal information Additional information: HPI from patient and EMS. BIBA. Patient c/o sudden onset of rapid and irregular palpitations while at home and at rest tonight. She has had similar episodes many times in the past which correlated with paroxysms of MP. She denies chest pain, shortness of breath, lightheadedness. No inciting event and no exacerbating nor ameliorating factors. BIBA, no medications given en route. EMS reports heart rates as high as mid-200s in field but normotensive. Patient took 25 mg metoprolol prior to EMS arrival (in addition to her 25 mg BID scheduled doses) as a PRN for rapid palpitations. Review of Systems Cardiac: reports: Palpitations. 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: Hysterectomy, Oophrectomy - Present Medications Home Medications: Ambulatory Orders Medication Instructions Recorded Confirmed lisinopriL [Lisinopril] 30 mg PO DAILY 06/09/15 12/22/23 Apixaban [Eliquis] 5 mg PO DAILY 06/18/21 12/22/23 Atorvastatin [Lipitor] 10 mg PO BID 06/18/21 12/22/23 Cyclosporine [Restasis Multidose] 1 drops EACHEYE BID 06/18/21 12/16/22 Metoprolol Tartrate [Lopressor] 25 mg PO BID 06/18/21 12/22/23 - Allergies Allergies/Adverse Reactions: Allergies Allergy/AdvReac Type Severity Reaction Status Date / Time Penicillins Allergy Hives Verified 12/22/23 01:34 - Social History Does the pt smoke?: No Smoking Status: Never smoker Does the pt drink ETOH?: Yes Does the pt have substance abuse?: No - Immunizations Immunizations are current?: Yes - POLST Patient has POLST: No PD ED PE NORMAL - Vitals Vital signs reviewed: Yes - General General: Alert and oriented X 3, No acute distress, Well developed/nourished - Respiratory Respiratory: No respiratory distress, Clear bilaterally - Abdomen Abdomen: Soft, Non tender - Derm Derm: Normal color, Warm and dry - Extremities Extremities: No edema PD ED PE EXPANDED - Cardiac Cardiac: Tachy, Irregularly irregular Results - Vitals Vitals: Oxygen O2 Source Room air - EKG (time done) No standard instances EKG releavant findings:: EKG personally interpreted by author of this note. Relevant findings are: Rate: Rate (enter#) (149) Rhythm: Atrial fibrillation [place]: LAD Ischemia: ST depression (V2-V6 ) - Labs Labs: Laboratory Tests 12/22/23 12/22/23 01:24 01:24 WBC 11.3 H RBC 4.58 Hgb 13.9 Hct 40.0 MCV 87.3 MCH 30.3 MCHC 34.8 RDW 13.3 Plt Count 346 MPV 9.8 Neut # (Auto) 6.2 Lymph # (Auto) 3.9 [place] # (Auto) 1.0 Eos # (Auto) 0.1 Baso # (Auto) 0.1 Absolute Nucleated RBC 0.00 Nucleated RBC % 0.0 Sodium 132 L Potassium 3.6 Chloride 100 L Carbon Dioxide 21 Anion Gap 11.0 BUN 12 Creatinine 0.6 Estimated GFR (MDRD) 95 Glucose 133 H Calcium 9.3 Total Bilirubin 0.6 AST 13 ALT 14 Alkaline Phosphatase 79 Troponin I High Sens 4.5 Total Protein 6.4 Albumin 3.9 Globulin 2.5 Albumin/Globulin Ratio 1.6 Lipase 14 - Rads (name of study) CXR Relevant Findings:: Prelim report reviewed, See rad report PD Medical Decision Making - ED course Complexity details: reviewed results, re-evaluated patient, considered differential, d/w patient ED course: Presents due to symptoms attributable to MP/RVR, several previous ED visits for same. Heart rates in field and ED are as high as 250-270 but normal blood pressures and only symptom is rapid/irregular palpitations. Given 15mg IV diltiazem without significant improvement (average heart rates modestly improved to mid/upper 100s), followed by 20mg IV diltiazem with similar (minimal) improvement in heart rate. She received 500cc NS bolus en route and is given another 500cc IV NS in ED. IV procainamide drip started and during this infusion she converts to NSR with concurrent normal heart rate. She is asymptomatic subsequent to conversion to NSR. Results d/w patient, return precautions reviewed. No concerning findings on CBC, ER abdominal panel, CXR. Normal hs-cTn. Departure - Departure Disposition: 01 Home, Self Care Clinical Impression: Atrial fibrillation with RVR Condition: Good Instructions: ED Afib Comments: There are no concerning findings on tonight's blood tests. You converted from rapid atrial fibrillation to a normal (sinus) cardiac rhythm and rate after a few doses of medication through the IV (diltiazem, procainamide). Follow-up with your cottrell blower within 1 to 2 weeks for reevaluation. Forms: PCP List Discharge Date/Time: 12/22/23 05:05
[2023-12-22 01:33] LABS: BASOPHILS # (AUTO) 0.1 10^3/uL (0.0-0.1); BASOPHILS % (AUTO) 0.5 %; EOSINOPHILS # (AUTO) 0.1 10^3/uL (0.0-0.7); EOSINOPHILS % (AUTO) 1.2 %; HGB - HEMOGLOBIN 13.9 g/dL (12.0-16.0); LYMPHOCYTES # (AUTO) 3.9 10^3/uL (1.5-3.5); LYMPHOCYTES % (AUTO) 34.7 %; MEAN CORPUSCULAR HEMOGLOBIN 30.3 pg (27.0-31.0); MEAN CORPUSCULAR HGB CONC 34.8 g/dL (32.0-36.0); MEAN CORPUSCULAR VOLUME 87.3 fL (81.0-99.0); MEAN PLATELET VOLUME 9.8 fL (7.9-10.8); MONOCYTES % (AUTO) 8.6 %; NEUTROPHILS # (AUTO) 6.2 10^3/uL (1.5-6.6); NEUTROPHILS % (AUTO) 54.7 %; PLT - PLATELET COUNT 346 10^3/uL (130-450); RED BLOOD COUNT 4.58 10^6/uL (4.20-5.40); RED CELL DISTRIBUTION WIDTH 13.3 % (12.0-15.0); WHITE BLOOD COUNT 11.3 x10^3/uL (4.8-10.8)
[2023-12-22 01:49] LABS: ALBUMIN 3.9 g/dL (3.2-5.5); ALBUMIN/GLOBULIN RATIO 1.6 (1.0-2.2); BILIRUBIN,TOTAL 0.6 mg/dL (0.2-1.0); CALCIUM 9.3 mg/dL (8.5-10.3); CREATININE 0.6 mg/dL (0.6-1.3); POTASSIUM 3.6 mmol/L (3.5-4.5); TOTAL PROTEIN 6.4 g/dL (6.4-8.9)
[2023-12-22 01:51] LABS: TROPONIN I HIGH SENSITIVITY 4.5 ng/L (2.3-14.8)
--- NOTE | 2023-12-22 01:56 | XRAY Report ---
PROCEDURE: Chest 1V INDICATIONS: chest pain TECHNIQUE: One view of the chest was acquired. COMPARISON: 09/02/2021 FINDINGS: Surgical changes and devices: None. Lungs and pleura: Diffuse thickening of the interstitial markings and perihilar regions. No dense co nsolidation, effusion, or pneumothorax. Mediastinum: Mediastinal contours appear normal. Mild central vascular congestion. Heart size is nor mal. Bones and chest wall: No suspicious bony lesions. Overlying soft tissues appear unremarkable. IMPRESSION: Central vascular congestion and diffuse interstitial markings suggests CHF or volume overload. Inters titial thickening may also be seen in viral pneumonitis. Correlate clinically. Reviewed by: Iwona Abebe MD on 12/22/2023 1:55 AM PST Approved by: Iwona Abebe MD on 12/22/2023 1:55 AM PST Station ID: [id number]
[2023-12-22] MEDS: SODIUM CHLORIDE 0.9% 500 ML IV STA (02:22)
[2023-12-22] MEDS ORDERED: PROCAINAMIDE 1,000 MG/10 ML SYRINGE ONE (03:07)
[2023-12-22] MEDS: PROCAINAMIDE 1,000 MG in SODIUM CHLORIDE 0.9% 240 ML IV STA (03:13)
[2023-12-22 04:43] VITALS: O2SAT 100
[2023-12-22 05:20] VITALS: BP 158/75
== END 2023-12-22 05:05 | disposition home or self-care (01) ==
LOC: ED 01:22
DX: I48.91 Unspecified atrial fibrillation (principal); I47.10 Supraventricular tachycardia, unspecified; I10 Essential (primary) hypertension; E78.00 Pure hypercholesterolemia, unspecified; Z79.01 Long term (current) use of anticoagulants; Z79.899 Other long term (current) drug therapy
CPT/HCPCS: 36415; 71045; 80053; 83690; 84484; 85025; 93005; 96365; 96375; 96376; 99284; 99285; J2690

== ENCOUNTER 2024-01-28 19:16 | Outpatient (CLI) | payer MEDICARE, OTHER | END 2024-01-28 23:59 | disposition critical access hospital (66) | LOC: EMS 19:16 | DX: R07.89 Other chest pain (principal); R68.84 Jaw pain; I48.91 Unspecified atrial fibrillation | CPT/HCPCS: A0425; A0427 ==

== ENCOUNTER 2024-01-28 20:40 | Emergency (ER) | payer MEDICARE, OTHER ==
--- NOTE | 2024-01-28 20:55 | ED Physician Documentation ---
History of Present Illness - Stated complaint Stated Complaint: HIGH HEART RATE - Chief complaint Chief Complaint: Cardiac - History obtained from History obtained from: Patient, EMS - History of Present Illness Timing: Enter time (1800), Today - Additonal information Additional information: Ines Dutton is an 83-year-old female with a history of rapid atrial fibrillation who presents this evening by ambulance after experiencing rapid palpitations at about 1800. She has been instructed to take metoprolol when she has a rapid rate and she took her 25 mg of metoprolol and did not get much relief of it when she developed some pain in her face she called the ambulance. The medics administered 40 mg of diltiazem with some reduction in the heart rate. Patient arrives to the emergency department feeling well. Review of Systems Constitutional: denies: Fever, Myalgias Eyes: denies: Decreased vision Ears: denies: Ear pain Nose: denies: Rhinorrhea / runny nose, Congestion Throat: reports: Other (facial pain to the jaw now resolved). denies: Sore throat Cardiac: reports: Palpitations. denies: Chest pain / pressure, Pedal edema, Calf pain Respiratory: denies: Dyspnea, Cough GI: denies: Abdominal Pain, Nausea, Vomiting, Constipation, Diarrhea : reports: Frequency, Other (urinary urgency). 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 /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 SPECIALIST: Hysterectomy, Oophrectomy - Present Medications Home Medications: Ambulatory Orders Medication Instructions Recorded Confirmed lisinopriL [Lisinopril] 30 mg PO DAILY 06/09/15 01/28/24 Apixaban [Eliquis] 5 mg PO DAILY 06/18/21 01/28/24 Atorvastatin [Lipitor] 10 mg PO BID 06/18/21 01/28/24 Cyclosporine [Restasis Multidose] 1 drops EACHEYE BID 06/18/21 01/28/24 Metoprolol Tartrate [Lopressor] 25 mg PO BID 06/18/21 01/28/24 Sulfamethox/Trimeth 800/160 1 each PO BID #14 tablet 01/29/24 [Bactrim Ds] - Allergies Allergies/Adverse Reactions: Allergies Allergy/AdvReac Type Severity Reaction Status Date / Time Penicillins Allergy Hives Verified 01/28/24 20:52 - Social History Does the pt smoke?: No Smoking Status: Never smoker Does the pt drink ETOH?: Yes Does the pt have substance abuse?: No - Immunizations Immunizations are current?: Yes - POLST Patient has POLST: No PD ED PE NORMAL - Vitals Vital signs reviewed: Yes (tachy to 160, hypertensive) - General General: Alert and oriented X 3, No acute distress, Well developed/nourished, Other (appears unaffected by heart rate ) - HEENT HEENT: Atraumatic, PERRL, EOMI - Neck Neck: Supple, no meningeal sign, No bony TTP - Cardiac Cardiac: Other (tachy and mostly regular) - Respiratory Respiratory: No respiratory distress, Clear bilaterally - Abdomen Abdomen: Normal bowel sounds, Soft, Non distended, No organomegaly, Other (mild suprapubic tenderness) - Back Back: No CVA TTP, No spinal TTP - Derm Derm: Normal color, Warm and dry, No rash - Extremities Extremities: No deformity, No edema - Neuro Neuro: Alert and oriented X 3, 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 installer 2-12 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, No motor deficit, No sensory deficit, Normal speech Eye Opening: Spontaneous Motor: Obeys Commands Verbal: Oriented GCS Score: 15 - Psych Psych: Normal mood, Normal affect Results - Vitals Vitals: Vital Signs - 24 hr 01/28/24 01/28/24 01/28/24 20:46 21:05 21:30 Temperature 36.2 C L Heart Rate 159 H 132 H 123 H Respiratory 22 20 18 Rate Blood Pressure 156/110 H 141/98 H 111/86 H O2 Saturation 95 99 97 01/28/24 01/28/24 01/28/24 21:43 21:53 22:00 Temperature Heart Rate 116 H 105 H 97 Respiratory 16 16 17 Rate Blood Pressure 110/66 107/69 101/82 H O2 Saturation 99 98 14 L 03/15/24 03/15/24 03/15/24 22:10 22:26 23:00 Temperature Heart Rate 94 63 60 Respiratory 18 19 14 Rate Blood Pressure 108/71 100/65 106/58 L O2 Saturation 99 98 98 01/28/24 01/29/24 01/29/24 23:30 00:00 00:30 Temperature Heart Rate 62 64 63 Respiratory 16 16 17 Rate Blood Pressure 118/68 129/62 129/56 L O2 Saturation 97 98 98 01/29/24 01/29/24 01:00 01:31 Temperature Heart Rate 67 64 Respiratory 12 12 Rate Blood Pressure 135/58 H O2 Saturation 99 98 Oxygen O2 Source Room air - EKG (time done) 2114 EKG releavant findings:: EKG personally interpreted by author of this note. Relevant findings are: Rate: Rate (enter#) (127) Rhythm: Atrial flutter (2:1 AV block) Compare to prior EKG: Changed from prior EKG (SPT 12-22-23 rate has decreased. ) Computer interpretation: Agree with computer 2229 EKG releavant findings:: EKG personally interpreted by author of this note. Relevant findings are: Rate: Rate (enter#) (62) Rhythm: NSR Intervals: Other (early transition) Ischemia: Other (isolated ST elevation to lad V2) Compare to prior EKG: Changed from prior EKG (SPT done earlier today the rhythm has changed to sinus the rate is reduced. The ST elevation in lead V2 is isolated and present on prior EKG's including one dated 08-13-2015 .) Computer interpretation: Agree with computer - Labs Labs: Laboratory Tests 01/28/24 01/28/24 01/28/24 21:00 21:00 21:00 WBC 10.4 RBC 4.75 Hgb 14.2 Hct 42.3 MCV 89.1 MCH 29.9 MCHC 33.6 RDW 13.7 Plt Count 355 MPV 10.1 Neut # (Auto) 7.2 H Lymph # (Auto) 2.3 [place] # (Auto) 0.7 Eos # (Auto) 0.1 Baso # (Auto) 0.0 Absolute Nucleated RBC 0.00 Nucleated RBC % 0.0 Sodium 136 Potassium 3.7 Chloride 102 Carbon Dioxide 26 Anion Gap 8.0 BUN 16 Creatinine 0.6 Estimated GFR (MDRD) 95 Glucose 191 H Calcium 9.9 Total Bilirubin 0.5 AST 18 ALT 16 Alkaline Phosphatase 102 Troponin I High Sens 9.2 Total Protein 7.4 Albumin 4.5 Globulin 2.9 Albumin/Globulin Ratio 1.6 Lipase 14 Urine Color Urine Clarity Urine pH Ur Specific [place] Urine Protein Urine Glucose (UA) Urine Ketones Urine Occult Blood Urine Nitrite Urine Bilirubin Urine Urobilinogen Ur Leukocyte Esterase Urine RBC Urine WBC Ur Squamous Epith Cells Urine Bacteria Ur Microscopic Review Urine Culture Comments 01/28/24 21:46 WBC RBC Hgb Hct MCV MCH MCHC RDW Plt Count MPV Neut # (Auto) Lymph # (Auto) [place] # (Auto) Eos # (Auto) Baso # (Auto) Absolute Nucleated RBC Nucleated RBC % Sodium Potassium Chloride Carbon Dioxide Anion Gap BUN Creatinine Estimated GFR (MDRD) Glucose Calcium Total Bilirubin AST ALT Alkaline Phosphatase Troponin I High Sens Total Protein Albumin Globulin Albumin/Globulin Ratio Lipase Urine Color STRAW Urine Clarity CLEAR Urine pH 7.0 Ur Specific [place] <=1.005 Urine Protein NEGATIVE Urine Glucose (UA) 100 H Urine Ketones NEGATIVE Urine Occult Blood NEGATIVE Urine Nitrite NEGATIVE Urine Bilirubin NEGATIVE Urine Urobilinogen 0.2 (NORMAL) Ur Leukocyte Esterase TRACE H Urine RBC None Seen Urine WBC 4-5 Ur Squamous Epith Cells RARE Squamous Urine Bacteria None Seen Ur Microscopic Review INDICATED Urine Culture Comments INDICATED PD Medical Decision Making - ED course Complexity details: reviewed old records, reviewed results, re-evaluated patient, considered differential, d/w patient Reviewed Lab Results: We reviewed a complete blood count showing a normal white blood cell count of 10.4 normal hemoglobin hematocrit and platelets normal indices electrolytes were normal kidney function liver functions all normal high-sensitivity troponin normal atThese laboratory values do not indicate any specific etiology and are normal aside from the elevated glucose. The urinalysis is concerning for the possibility of urinary tract infection and the patient is symptomatic. The specimen did make the grade 4 culture and she will be treated for urinary tract infection. Glucose elevated at 191 urinalysis does show some glucose in the urine specific gravity 1.005 and trace leukocyte [place] 4-5 white blood cells per high-powered field no bacteria seen the specimen does make the grade for culture.The normal high-sensitivity troponin of 9.2, after or 4 hours of heart rate greater than 160 indicates a low likelihood of ischemic heart disease. ED course: Ines Dutton presents to the emergency department with a rhythm of atrial flutter at a rate between 160 and 180. She had been given diltiazem in the field. Today we treated her with 3 doses of metoprolol intravenously which did bring the patient's heart rate down into the 130 range. I reviewed the patient's medical record from multiple visits and found that she has been successfully treated with procainamide and she was placed on a procainamide drip at 16.7 mg/min which is equivalent to 1 g/h. She converted near the end of the infusion. Patient is currently asymptomatic in a normal sinus rhythm with a rate of 62. She does have symptoms of urinary urgency and urinalysis is concerning for the possibility of infection. She is treated with a gram of Rocephin. - Critical Care Time(min): 40 Comments: Patient was placed on a radiographer cardiac catheterization given 3 doses of metoprolol intravenously and started on a procainamide drip. Time Includes: Direct patient care, Review records, Reassess patient, Document care, Coordinate care Data interpretation: Labs, Pulse ox, Prior EKG Departure - Departure Disposition: 01 Home, Self Care Clinical Impression: Atrial fibrillation and flutter Urinary tract infection Qualifiers: Urinary tract infection type: acute cystitis Hematuria presence: without hematuria Qualified Code(s): N30.00 - Acute cystitis without hematuria Condition: Stable Instructions: ED Paroxysmal Atrial Flutter, ED UTI Cystitis Female Follow-Up: Martine Fitzgerald MD [Physician No Access] - Prescriptions: Sulfamethox/Trimeth 800/160 [Bactrim Ds] 1 each PO BID #14 tablet Comments: Ines, today it looks like you had atrial flutter with a rapid ventricular response and your heart appeared to tolerate this. We were able to convert your heart to a normal sinus rhythm with the use of procainamide. A follow-up with your technical training coordinator is indicated. Today it also looks like you have urinary tract infection and this has been present one other time associated with chest pain. I have E scribed some sulfamethoxazole trimethoprim to [facility] [place]. Forms: PCP List Discharge Date/Time: 01/29/24 01:31
[2024-01-28] MEDS: METOPROLOL 5 MG/5 ML VIAL IVP STA ×3 (21:00→21:15)
[2024-01-28 21:07] LABS: BASOPHILS % (AUTO) 0.4 %; EOSINOPHILS # (AUTO) 0.1 10^3/uL (0.0-0.7); EOSINOPHILS % (AUTO) 1.3 %; HCT - HEMATOCRIT 42.3 % (37.0-47.0); HGB - HEMOGLOBIN 14.2 g/dL (12.0-16.0); LYMPHOCYTES # (AUTO) 2.3 10^3/uL (1.5-3.5); LYMPHOCYTES % (AUTO) 22.1 %; MEAN CORPUSCULAR HEMOGLOBIN 29.9 pg (27.0-31.0); MEAN CORPUSCULAR HGB CONC 33.6 g/dL (32.0-36.0); MEAN CORPUSCULAR VOLUME 89.1 fL (81.0-99.0); MEAN PLATELET VOLUME 10.1 fL (7.9-10.8); MONOCYTES # (AUTO) 0.7 10^3/uL (0.0-1.0); MONOCYTES % (AUTO) 6.4 %; NEUTROPHILS # (AUTO) 7.2 10^3/uL (1.5-6.6); NEUTROPHILS % (AUTO) 69.5 %; PLT - PLATELET COUNT 355 10^3/uL (130-450); RED BLOOD COUNT 4.75 10^6/uL (4.20-5.40); RED CELL DISTRIBUTION WIDTH 13.7 % (12.0-15.0); WHITE BLOOD COUNT 10.4 x10^3/uL (4.8-10.8)
[2024-01-28 21:21] LABS: ALBUMIN 4.5 g/dL (3.2-5.5); ALBUMIN/GLOBULIN RATIO 1.6 (1.0-2.2); BILIRUBIN,TOTAL 0.5 mg/dL (0.2-1.0); CALCIUM 9.9 mg/dL (8.5-10.3); CREATININE 0.6 mg/dL (0.6-1.3); POTASSIUM 3.7 mmol/L (3.5-4.5); TOTAL PROTEIN 7.4 g/dL (6.4-8.9)
[2024-01-28] MEDS ORDERED: PROCAINAMIDE 1,000 MG/10 ML SYRINGE ONE (21:23)
[2024-01-28] MEDS: PROCAINAMIDE 1,000 MG in SODIUM CHLORIDE 0.9% 240 ML IV STA (21:24)
[2024-01-28 21:55] LABS: BILIRUBIN,URINE NEGATIVE (NEGATIVE); GLUCOSE, URINE (UA) 100 mg/dL (NEGATIVE); KETONES,URINE (UA) NEGATIVE (NEGATIVE); LEUKOCYTE ESTERASE, URINE TRACE (NEGATIVE); NITRITE,URINE NEGATIVE (NEGATIVE); OCCULT BLOOD,URINE NEGATIVE (NEGATIVE); PROTEIN,URINE NEGATIVE (NEGATIVE); UROBILINOGEN,URINE 0.2 (NORMAL) E.U./dL (NORMAL)
[2024-01-28 21:57] LABS: CLARITY,URINE CLEAR (CLEAR)
[2024-01-28 22:04] LABS: BACTERIA,URINE None Seen /HPF (None Seen); RBC,URINE None Seen /HPF (0-5); SQUAMOUS EPITHELIAL CELL,UR RARE Squamous (<= Few)
[2024-01-28] MEDS ORDERED: cefTRIAXone 1 GM VIAL ONE (23:19)
[2024-01-28] MEDS: cefTRIAXone 1 GM in SODIUM CHLORIDE 0.9% MINIBAG 100 ML IV STA (23:22)
[2024-01-29 01:15] VITALS: BP 135/58
[2024-01-29 01:36] VITALS: O2SAT 98
== END 2024-01-29 01:31 | disposition home or self-care (01) ==
LOC: ED 20:40
DX: I48.92 Unspecified atrial flutter (principal); I10 Essential (primary) hypertension; N30.00 Acute cystitis without hematuria
CPT/HCPCS: 36415; 80053; 81001; 83690; 84484; 85025; 87077; 87086; 93005; 96365; 96367; 96375; 99291; J2690; 81003

== ENCOUNTER 2024-04-11 02:24 | Outpatient (CLI) | payer MEDICARE | END 2024-04-11 23:54 | disposition critical access hospital (66) | LOC: EMS 02:24 | PROVIDERS: ATTEND Emergency Medicine | DX: I48.91 Unspecified atrial fibrillation (principal) | CPT/HCPCS: A0425; A0427 ==

== ENCOUNTER 2024-04-11 03:03 | Emergency (ER) | payer MEDICARE, OTHER ==
--- NOTE | 2024-04-11 03:20 | ED Physician Documentation ---
History of Present Illness - Stated complaint Stated Complaint: HEART PALPITATIONS - History obtained from History obtained from: Patient - Additonal information Additional information: Patient comes to the emergency department chief complaint of heart palpitations that started a couple of hours ago. Patient has a longstanding history of atrial fibrillation which is at times paroxysmal and other times persistent. She states that she has not had any chest pain or shortness of breath. No lightheadedness. She otherwise feels fairly well but states that she cannot get her heart to stop racing. She tried taking her metoprolol at home but this did not seem to help. Medics state they gave her 25 mg of Cardizem and route but did not really notice any difference in the heart rate to speak of. The patient was in the 200s when she was picked up by them. The patient states that she used to only get episodes of RVR about once a year, but now, she has already had 3 episodes this calendar year, which she attributes to stress from her 's . No other complaints at this time. 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, Oophrectomy - Present Medications Home Medications: Ambulatory Orders Medication Instructions Recorded Confirmed lisinopriL [Lisinopril] 30 mg PO DAILY 06/09/15 04/11/24 Apixaban [Eliquis] 5 mg PO DAILY 06/18/21 04/11/24 Atorvastatin [Lipitor] 10 mg PO BID 06/18/21 04/11/24 Cyclosporine [Restasis Multidose] 1 drops EACHEYE BID 06/18/21 04/11/24 Metoprolol Tartrate [Lopressor] 25 mg PO BID 06/18/21 04/11/24 Nitroglycerin [Nitrostat] 1 tab SL PRN PRN 04/11/24 04/11/24 - Allergies Allergies/Adverse Reactions: Allergies Allergy/AdvReac Type Severity Reaction Status Date / Time Penicillins Allergy Hives Verified 04/11/24 03:29 - Social History Does the pt smoke?: No Smoking Status: Never smoker Does the pt drink ETOH?: Yes Does the pt have substance abuse?: No - Immunizations Immunizations are current?: Yes - POLST Patient has POLST: No PD ED PE NORMAL - Vitals Vital signs reviewed: Yes - General General: Alert and oriented X 3, No acute distress, Well developed/nourished - HEENT HEENT: Atraumatic, EOMI, Moist mucous membranes - Neck Neck: Supple, no meningeal sign - Cardiac Cardiac: No murmur, Strong equal pulses, Other (Irregularly irregular, tachycardic.) - Respiratory Respiratory: No respiratory distress, Clear bilaterally - Abdomen Abdomen: Soft, Non tender, Non distended - Derm Derm: Normal color, Warm and dry, No rash - Extremities Extremities: No deformity, No edema - Neuro Neuro: Alert and oriented X 3, Other (Grossly oriented) - Psych Psych: Normal mood, Normal affect Results - Vitals Vitals: Vital Signs - 24 hr 04/11/24 04/11/24 04/11/24 03:25 03:45 03:50 Temperature 36.9 C Heart Rate 138 H 131 H 128 H Respiratory 18 16 16 Rate Blood Pressure 153/95 H 121/60 121/76 O2 Saturation 98 95 92 04/11/24 04/11/24 04/11/24 03:55 04:00 04:15 Temperature Heart Rate 119 H 136 H 133 H Respiratory 16 16 16 Rate Blood Pressure 119/82 H 116/82 H 123/74 O2 Saturation 95 92 93 04/11/24 04/11/24 04/11/24 04:30 05:00 06:00 Temperature Heart Rate 141 H 143 H 155 H Respiratory 16 16 14 Rate Blood Pressure 121/81 H 122/70 139/99 H O2 Saturation 93 94 96 04/11/24 04/11/24 04/11/24 06:53 07:12 07:30 Temperature Heart Rate 134 H 140 H 135 H Respiratory 16 16 Rate Blood Pressure 123/92 H 133/86 H 135/83 H O2 Saturation 97 96 04/11/24 04/11/24 04/11/24 08:00 08:15 08:20 Temperature Heart Rate 129 H 137 H 134 H Respiratory Rate Blood Pressure 162/73 H 118/74 116/66 O2 Saturation 04/11/24 04/11/24 04/11/24 08:25 08:30 08:45 Temperature Heart Rate 133 H 129 H 129 H Respiratory Rate Blood Pressure 109/85 H 101/85 H 118/73 O2 Saturation 04/11/24 04/11/24 04/11/24 09:00 09:15 10:21 Temperature Heart Rate 131 H 130 H 130 H Respiratory Rate Blood Pressure 111/65 103/83 H 127/94 H O2 Saturation 04/11/24 04/11/24 04/11/24 10:30 11:00 12:45 Temperature 36.7 C Heart Rate 62 58 L 62 Respiratory 18 16 17 Rate Blood Pressure 101/48 L 111/74 140/77 H O2 Saturation 95 95 99 Oxygen O2 Source Room air - EKG (time done) 0321 EKG releavant findings:: EKG personally interpreted by author of this note. Relevant findings are: Rate: Rate (enter#) (138) Rhythm: Atrial fibrillation [place]: Normal QRS: Normal Ischemia: Non specific changes Compare to prior EKG: Old EKG unavailable Computer interpretation: Agree with computer - Labs Labs: Laboratory Tests 04/11/24 04/11/24 06:45 06:45 WBC 9.2 RBC 4.62 Hgb 14.1 Hct 42.0 MCV 90.9 MCH 30.5 MCHC 33.6 RDW 12.7 Plt Count 296 MPV 11.1 H Neut # (Auto) 5.6 Lymph # (Auto) 2.6 [place] # (Auto) 0.7 Eos # (Auto) 0.2 Baso # (Auto) 0.0 Absolute Nucleated RBC 0.00 Nucleated RBC % 0.0 Sodium 138 Potassium 3.2 L Chloride 105 Carbon Dioxide 24 Anion Gap 9.0 BUN 15 Creatinine 0.6 Estimated GFR (MDRD) 95 Glucose 106 H Calcium 9.0 Total Bilirubin 0.4 AST 23 ALT 23 Alkaline Phosphatase 85 Total Protein 6.6 Albumin 4.2 Globulin 2.4 Albumin/Globulin Ratio 1.8 Lipase 12 TSH 4.96 PD Medical Decision Making - ED course Complexity details: reviewed old records, reviewed results, re-evaluated patient, considered differential, d/w patient ED course: The patient was evaluated immediately upon arrival by myself. She was given doses of p.o. Cardizem and IV Cardizem, With only mild, transient improvement in her heart rate. I looked back through prior notes and found that procainamide drip had previously worked on this patient for both rate control and cardioversion, so I did order this. The patient, however, did not cardiovert and her rate began to climb again after the previous meds had worn off. With the patient back in the 160s, I did order metoprolol 15 mg IV and an esmolol drip. At this point in time, the patient is receiving her esmolol drip and is being titrated. The plan will be to admit the patient to the intensive care unit when beds are available. The pt is signed out to Dr. Enamorado at change of shift, pending admission. - Critical Care Time(min): 40 Comments: Critical care time was necessary, due to high probability of imminent decline and , secondary to persistent tachydysrhythmia refractory to treatment in the form of atrial fibrillation with rapid ventricular response. Time Includes: Direct patient care, Review records, Reassess patient, Document care, Coordinate care, See progress note Data interpretation: Labs, Pulse ox, Prior EKG, Cardiac output, See progress note Departure - Departure Disposition: 01 Home, Self Care Clinical Impression: Atrial fibrillation with RVR, Hypokalemia Condition: Critical Comments: Continue with usual medications of the metoprolol and Eliquis and other meds. Your potassium was a little bit low here. I would suggest a potassium supplement or high potassium foods over the next 7 to 10 days. Otherwise usual diet and fluid intake. Return if needed. You were in a rapid atrial fibrillation and with the medication did convert back to normal sinus rhythm at this time. Forms: PCP List Discharge Date/Time: 04/11/24 12:45
[2024-04-11] MEDS: diltiaZEM INJ 5 MG/ML VIAL IVP STA (03:39)
[2024-04-11] MEDS ORDERED: PROCAINAMIDE 1,000 MG/10 ML SYRINGE ONE (04:43)
[2024-04-11] MEDS: PROCAINAMIDE 1,000 MG in SODIUM CHLORIDE 0.9% 240 ML IV STA (04:50)
[2024-04-11] MEDS: METOPROLOL 5 MG/5 ML VIAL IVP STA ×3 (05:12→08:36)
[2024-04-11] MEDS: METOPROLOL TARTRATE 25 MG TABLET PO STA ×2 (05:13→12:23)
[2024-04-11 07:16] LABS: BASOPHILS % (AUTO) 0.4 %; EOSINOPHILS # (AUTO) 0.2 10^3/uL (0.0-0.7); EOSINOPHILS % (AUTO) 1.9 %; HGB - HEMOGLOBIN 14.1 g/dL (12.0-16.0); LYMPHOCYTES # (AUTO) 2.6 10^3/uL (1.5-3.5); LYMPHOCYTES % (AUTO) 28.2 %; MEAN CORPUSCULAR HEMOGLOBIN 30.5 pg (27.0-31.0); MEAN CORPUSCULAR HGB CONC 33.6 g/dL (32.0-36.0); MEAN CORPUSCULAR VOLUME 90.9 fL (81.0-99.0); MEAN PLATELET VOLUME 11.1 fL (7.9-10.8); MONOCYTES # (AUTO) 0.7 10^3/uL (0.0-1.0); NEUTROPHILS # (AUTO) 5.6 10^3/uL (1.5-6.6); NEUTROPHILS % (AUTO) 61.3 %; PLT - PLATELET COUNT 296 10^3/uL (130-450); RED BLOOD COUNT 4.62 10^6/uL (4.20-5.40); RED CELL DISTRIBUTION WIDTH 12.7 % (12.0-15.0); WHITE BLOOD COUNT 9.2 x10^3/uL (4.8-10.8)
[2024-04-11 07:25] LABS: ALBUMIN 4.2 g/dL (3.2-5.5); ALBUMIN/GLOBULIN RATIO 1.8 (1.0-2.2); BILIRUBIN,TOTAL 0.4 mg/dL (0.2-1.0); CREATININE 0.6 mg/dL (0.6-1.3); POTASSIUM 3.2 mmol/L (3.5-4.5); TOTAL PROTEIN 6.6 g/dL (6.4-8.9)
[2024-04-11] MEDS: ESMOLOL 2.5 GM/250 ML BAG IV STA (07:32)
[2024-04-11 07:44] LABS: THYROID STIMULATING HORMONE 4.96 uIU/mL (0.34-5.60)
--- NOTE | 2024-04-11 12:13 | ED Physician Documentation ---
ED Addendum - Addendum Addendum: 04/11/24 12:11 Which the patient remained on the esmolol drip for a period and had a slower heart rate down to approximately 100. She did not have any lightheadedness. Blood pressure was adequate. She did subsequently convert to sinus rhythm with now heart rate in the 60s. The esmolol drip was titrated down and then off. She did not have any bradycardia. Blood pressure still good. She was watched for a period of 1 to 2 hours and remained in sinus rhythm without any problems. She was given her daily morning dose of metoprolol 25 mg orally. She remains stable. At this point we can discharge the patient with her history of paroxysmal atrial fibrillation without any other complications at this time. Disposition: The patient discharged home in stable condition. Diagnoses: 1. Paroxysmal atrial fibrillation with rapid ventricular response 2. hypokalemia 04/11/24 12:13
[2024-04-11] MEDS: POTASSIUM BICARB 25 MEQ TABLET PO STA (12:23)
[2024-04-11 13:20] VITALS: BP 140/77; O2SAT 99
== END 2024-04-11 12:45 | disposition home or self-care (01) ==
LOC: EDUNIT# → ED 03:03
DX: I48.0 Paroxysmal atrial fibrillation (principal); E87.6 Hypokalemia; I10 Essential (primary) hypertension; E78.00 Pure hypercholesterolemia, unspecified; Z79.01 Long term (current) use of anticoagulants; Z79.899 Other long term (current) drug therapy
CPT/HCPCS: 36415; 80053; 83690; 84443; 85025; 93005; 96365; 96366; 96375; 99291; A9270; J2690

== ENCOUNTER 2024-10-02 19:30 | Observation (INO) ==
[2024-10-02] MEDS: SODIUM CHLORIDE 0.9% 1,000 ML IV STA (19:45)
[2024-10-02] MEDS: MAGNESIUM SULFATE 2 GRAM 2 GM/50 ML BAG IV ONE (19:45)
--- NOTE | 2024-10-02 19:45 | ED Physician Documentation ---
History of Present Illness Stated complaint Stated Complaint: AFIB Chief complaint Chief Complaint: Cardiac History obtained from History obtained from: Patient History of Present Illness Pain level max: 0 Pain level now: 0 Additonal information Additional information: Patient is an 83-year-old female who presents with palpitations today. She states she has a history of intermittent atrial fibrillation with rapid ventricular response. She called 911 and was given 17 mg of diltiazem followed by 23 mg of diltiazem. Heart rate did decrease slightly but is still tachycardic. Not having chest pain or shortness of breath. No fevers or chills. She is on Eliquis at home. No abdominal pain, nausea, vomiting. Meds/Allgy Home Medications Ambulatory Orders Medication Instructions Recorded Confirmed lisinopril 10 mg tablet 30 mg PO DAILY 06/09/15 04/11/24 apixaban 5 mg tablet (Eliquis) 5 mg PO DAILY 06/18/21 04/11/24 atorvastatin 10 mg tablet 10 mg PO BID 06/18/21 04/11/24 cyclosporine 0.05 % eye drops 1 drp EACHEYE BID 06/18/21 04/11/24 (Restasis MultiDose) metoprolol tartrate 25 mg tablet 25 mg PO BID 06/18/21 04/11/24 nitroglycerin 0.3 mg sublingual 1 tab sublingual PRN PRN Chest Pain 04/11/24 04/11/24 tablet (Nitrostat) Allergies Allergies Allergy/AdvReac Type Severity Reaction Status Date / Time Penicillins Allergy Hives Verified 10/02/24 19:41 [facility] Social History Social History Smoking Status: Never smoker Second hand tobacco smoke exposure: No Do you dip or chew tobacco?: No Do you vape?: No Living arrangement: At home Living Condition: With spouse/s.o. Relationship: Level: Independent Home Mobility Equipment: Cane Do you feel safe in your home environment?: Yes Suffered physical, verbal, emotional, or financial abuse?: No History of Abuse: No Frequency: Occasional POLST Patient has POLST: No Exam Constitutional normal general appearance and no apparent distress HENMT oropharynx normal Eyes PERRL Neck/C-Spine trachea midline Respiratory breath sounds equal bilaterally and normal respiratory effort Cardiovascular Irregular, tachycardic Gastrointestinal abdomen soft to palpation and nontender to palpation Genitourinary no CVA tenderness Extremities normal to palpation no edema Psychiatry mental status grossly normal and oriented x3 Skin skin color normal Results Vitals Vitals: Vital Signs - 24 hr 10/02/24 19:36 10/02/24 20:03 10/02/24 20:10 Temperature 36.6 C Temperature Source Tympanic Pulse Rate 162 H 189 H 189 H Respiratory Rate 18 17 18 Blood Pressure 133/92 H 113/85 113/85 O2 Saturation 95 97 97 O2 Source Room air Room air Nasal cannula If not protocol: Oxygen Flow, liters/minute 2 Pain Intensity 0 0 0 10/02/24 20:35 Temperature Temperature Source Pulse Rate 175 H Respiratory Rate 28 H Blood Pressure O2 Saturation O2 Source If not protocol: Oxygen Flow, liters/minute Pain Intensity Oxygen O2 Source Nasal cannula EKG (time done) 1942: EKG releavant findings:: EKG personally interpreted by author of this note. Relevant findings are: Rate: Rate (enter#) (171) Rhythm: Atrial fibrillation (RVR) QRS: QRS normal Ischemia: Other (Rate related changes) Labs Labs: Laboratory Tests 10/02/24 19:11 WBC 9.8 RBC 4.98 Hgb 14.5 Hct 42.8 MCV 85.9 MCH 29.1 MCHC 33.9 RDW 14.3 Plt Count 301 MPV 10.0 Neut # (Auto) 5.9 Lymph # (Auto) 3.1 [place] # (Auto) 0.6 Eos # (Auto) 0.1 Baso # (Auto) 0.1 Absolute Nucleated RBC 0.00 Nucleated RBC % 0.0 Sodium 136 Potassium 3.5 Chloride 100 L Carbon Dioxide 24 Anion Gap 12.0 BUN 13 Creatinine 0.8 Estimated GFR (MDRD) 68 L Glucose 114 H Calcium 9.7 Phosphorus 3.5 Magnesium 1.8 Total Bilirubin 0.7 AST 19 ALT 17 Alkaline Phosphatase 101 Total Protein 7.1 Albumin 4.7 Globulin 2.4 Albumin/Globulin Ratio 2.0 Lipase 21 Rads (name of study) cxr: Relevant Findings:: Final report received Procedures Procedural sedation Sedation prep: Informed consent, Time out completed, Last meal (3hrs FLOOR CLERK), PE performed, ASA 2 - mild disease, IV O2 monitor, ET CO2 monitor and RT present Sedation Medications: propofol Mallampati classification: II Patient status during sedation: Drowsy, Vitals remained stable, Maintained airway and Recovered uneventfully Sedation recovery: Recovered uneventfully Time in sedation (Minutes): 15 Cardioversion - Major Attempt 1: Time of attempt: 20:10 Indication: Tachyarrhythmia Prep: IV, O2, quality assurance monitor chassis, Pulse ox (etco2) and Airway equip CS via: Pads Sync: Biphasic and 100j (120j) Post cardioversion rhythm: A-fib Performed by: ED Attempt 2: Time of attempt: 20:11 Indication: Tachyarrhythmia Risks, benefits, alternatives explained to: Pt Prep: IV, O2 (etco2) and Pulse ox CS via: Pads Sync: Biphasic and 150j Post cardioversion rhythm: A-fib Performed by: ED MD PD Medical Decision Making ED course Complexity details: reviewed results and d/w patient ED course: Attempted cardioversion x 2. Patient did break both times in the sinus rhythm but immediately went back into atrial fibrillation with rapid ventricular response after 5-10 beats.. Therefore we will place the patient on diltiazem drip and admit for A-fib RVR. Patient has no chest pain. No shortness of breath. Otherwise asymptomatic. Discussed the case with the hospitalist who accepts. Dr. Kinsey did recommend attempting a dose of metoprolol. This was given but did not change her heart rate much. This document was made in part using voice recognition software. While efforts are made to proofread this document, sound alike and grammatical errors may occur. Discharge Plan Discharge Patient Disposition: [facility] DC/Xfer Condition: Stable Clinical Impression: Atrial fibrillation with RVR Interventions: ED Admission Assessment Last Done: 10/02/24 22:12
[2024-10-02 19:47] LABS: BASOPHILS # (AUTO) 0.1 10^3/uL (0.0-0.1); BASOPHILS % (AUTO) 0.5 %; EOSINOPHILS # (AUTO) 0.1 10^3/uL (0.0-0.7); EOSINOPHILS % (AUTO) 1.3 %; HCT - HEMATOCRIT 42.8 % (37.0-47.0); HGB - HEMOGLOBIN 14.5 g/dL (12.0-16.0); LYMPHOCYTES # (AUTO) 3.1 10^3/uL (1.5-3.5); LYMPHOCYTES % (AUTO) 31.2 %; MEAN CORPUSCULAR HEMOGLOBIN 29.1 pg (27.0-31.0); MEAN CORPUSCULAR HGB CONC 33.9 g/dL (32.0-36.0); MEAN CORPUSCULAR VOLUME 85.9 fL (81.0-99.0); MONOCYTES # (AUTO) 0.6 10^3/uL (0.0-1.0); MONOCYTES % (AUTO) 5.9 %; NEUTROPHILS # (AUTO) 5.9 10^3/uL (1.5-6.6); NEUTROPHILS % (AUTO) 60.8 %; PLT - PLATELET COUNT 301 10^3/uL (130-450); RED BLOOD COUNT 4.98 10^6/uL (4.20-5.40); RED CELL DISTRIBUTION WIDTH 14.3 % (12.0-15.0); WHITE BLOOD COUNT 9.8 x10^3/uL (4.8-10.8)
[2024-10-02 20:01] LABS: ALBUMIN 4.7 g/dL (3.2-5.5); BILIRUBIN,TOTAL 0.7 mg/dL (0.2-1.0); CALCIUM 9.7 mg/dL (8.5-10.3); CREATININE 0.8 mg/dL (0.6-1.3); MAGNESIUM 1.8 mg/dL (1.7-2.3); PHOSPHORUS 3.5 mg/dL (2.5-5.0); POTASSIUM 3.5 mmol/L (3.5-4.5); TOTAL PROTEIN 7.1 g/dL (6.4-8.9)
[2024-10-02] MEDS: PROPOFOL 200 MG/20 ML VIAL IVP STA (20:25)
[2024-10-02] MEDS ORDERED: diltiaZEM INJ 5 MG/ML VIAL ONE (20:28)
[2024-10-02] MEDS: diltiaZEM INJ 125 MG in DEXTROSE 5% 100 ML IV STA (20:33)
--- NOTE | 2024-10-02 20:34 | XRAY Report ---
PROCEDURE: XR Chest 1V INDICATIONS: Afib RVR TECHNIQUE: One view of the chest was acquired. COMPARISON: CXR 08/11/2024, 12/22/2023. FINDINGS: Surgical changes and devices: None. Lungs and pleura: No pleural effusions or pneumothorax. Prominent pulmonary markings. No consolidati on. Mediastinum: Mediastinal contours appear normal. Heart size is normal. Bones and chest wall: No suspicious bony lesions. Overlying soft tissues appear unremarkable. IMPRESSION: Question pulmonary vasculature engorgement. Reviewed by: Arnie Pulido MD on 10/02/2024 8:32 PM PST Approved by: Arnie Pulido MD on 10/02/2024 8:32 PM PST Station ID: [id number]
[2024-10-02] MEDS ORDERED: ONDANSETRON 4 MG/2 ML VIAL IVP PRN (20:54)
[2024-10-02] MEDS ORDERED: ACETAMINOPHEN 325 MG TABLET PO PRN (20:54)
[2024-10-02] MEDS ORDERED: SODIUM CHLORIDE FLUSH 0.9% 10 ML SYRINGE IVP PRN (20:54)
[2024-10-02] MEDS: METOPROLOL 5 MG/5 ML VIAL IVP STA (21:43)
--- NOTE | 2024-10-02 21:43 | HISTORY & PHYSICAL EXAMINATION ---
Chief Complaint Chief Complaint Chief Complaint: palpatations History of Present Illness Admitted From Admitted From:: home via ems History Obtained From Records Reviewed: yes History obtained from: ED physician, patient Exam Limitations: telemedicine visit History of Present Illness HPI Comment/Other: Mrs. Marino presented to the ED for heart palpatation and tachycardia. She was found to be in afib with RVR by EMS. she has a history of Afib and is on metoprolol and eliquis. she endorses compliance. she denies any precipitating factors. She explained that she has occasional episodes when her heart rate will increase, but usually resolves within a short period of time. Tonight however her rapid heart rate was persistent. She denies any associated chest pain, shortness of breath or dizziness. In route to the ED she received 2 boluses of diltiazem with no improvement to her heart rate or rhythm. In the ED she underwent cardioversion x 2 that was unsuccessful in achieving sustained NSR. I discussed with the ED physician, and due to her persistent arrhythmia and uncontrolled heart rate I agreed to admit her for further management of her afib RVR. Patient was seen at bedside, plan to admit for continued management with the initiation of a continuos Cardizem drip and monitoring in the ICU was discussed with the patient. She agreed to the plan of care and admission. this visit was performed using telemedicine tools including phone and live-video. patient provided consent to proced with this visit using the available telemedicine modalities. Review of Systems Status of ROS: 10 or more systems reviewed and unremarkable except as noted in history and below PFSH Social History Social History Smoking Status: Never smoker Living arrangement: At home Living Condition: With spouse/s.o. Relationship: Do you feel safe in your home environment?: Yes Suffered physical, verbal, emotional, or financial abuse?: No History of Abuse: No Frequency: Occasional POLST Patient has POLST: No Meds/Allgy Home Medications Ambulatory Orders Medication Instructions Recorded Confirmed lisinopril 10 mg tablet 30 mg PO DAILY 06/09/15 04/11/24 apixaban 5 mg tablet (Eliquis) 5 mg PO DAILY 06/18/21 04/11/24 atorvastatin 10 mg tablet 10 mg PO BID 06/18/21 04/11/24 cyclosporine 0.05 % eye drops 1 drp EACHEYE BID 06/18/21 04/11/24 (Restasis MultiDose) metoprolol tartrate 25 mg tablet 25 mg PO BID 06/18/21 04/11/24 nitroglycerin 0.3 mg sublingual 1 tab sublingual PRN PRN Chest Pain 04/11/24 04/11/24 tablet (Nitrostat) Allergies Allergies Allergy/AdvReac Type Severity Reaction Status Date / Time Penicillins Allergy Hives Verified 10/02/24 19:41 Exam Exam physical exam, as recorded, is based on patient reported information or obtained through peripheral observation. Constitutional no apparent distress Eyes PERRL and EOMs intact bilaterally Chest inspection of chest normal and palpation of chest normal Respiratory breath sounds equal bilaterally Cardiovascular heart rate abnormal (tachycardic) and rhythm abnormal (irregular) Extremities normal to inspection Neurology ceramic restorer II-XII intact, no movement abnormality noted and no focal motor deficit noted Psychiatry oriented x3 and cooperative Conclusion/Plan Problem List (1) Atrial fibrillation with RVR: Plan: history of atrial fibrillation,compliant with home medication. -EKG: reviewed showing afib RVR -I will continue with Cardizem drip for rate management, i will monitor clinical response and adjust medication dosage as appropriate for rate management. I will monitor vitals with serial BP checks to evaluate for any adverse effects of medication administration and make adjustment as appropriate -I have reviewed home regimen of Lopressor 25mg BID, I will resume home medication starting with evening dose. -I have reviewed and resume home regimen of anticoagulation with Eliquis 5mg BID, starting with evening dose. I will monitor for clinical signs of toxicity or adverse affects and adjust regimen as appropriate -I have ordered for serial monitoring of electrolytes ,and will replace them per protocol as appropriate -further evaluation by Cardiology may be warranted if patient has not converted to NSR or rate is not <100 bpm after 12 hour of initial management with cardiazem and IV lopressor. (2) Hypertension: Plan: I have reviewed home regimen. Patient is on Lisinopril at home. -will hold antihypertensive regimen at this time to avoid hypotension as she is currently receiving continuous diltaziem and IV lopressor. (3) Hyperlipidemia: Plan: I have reviewed and resume patient's home regimen of atorvastatin 10mg daily. Lab Results Lab results reviewed: Yes 10/02/24 19:11 10/02/24 19:11 Diagnostic Imaging Results Diagnostic Imaging Results: positive Final report reviewed EKG Results EKG Interpreted Independently: Yes Core Measures Anticipated LOS I expect patient to be DC'd or transferred within 96 hours.: Yes DVT/VTE - Prophylaxis VTE/DVT Device ordered at admit?: Yes Telemedicine Consult Details Provider Location & Consult Time Telemedicine consultation conducted via videoconferencing?: Yes
[2024-10-02] MEDS: CYCLOSPORINE EACHEYE SCH (22:31)
[2024-10-02] MEDS: ATORVASTATIN 10 MG TABLET PO SCH (22:34)
[2024-10-02] MEDS: METOPROLOL TARTRATE 25 MG TABLET PO SCH (22:34)
[2024-10-03] MEDS: SODIUM CHLORIDE FLUSH 0.9% 10 ML SYRINGE IVP SCH (03:14)
[2024-10-03 04:49] LABS: BASOPHILS % (AUTO) 0.4 %; EOSINOPHILS # (AUTO) 0.1 10^3/uL (0.0-0.7); EOSINOPHILS % (AUTO) 0.7 %; HCT - HEMATOCRIT 39.8 % (37.0-47.0); HGB - HEMOGLOBIN 13.4 g/dL (12.0-16.0); LYMPHOCYTES # (AUTO) 2.1 10^3/uL (1.5-3.5); LYMPHOCYTES % (AUTO) 20.5 %; MEAN CORPUSCULAR HEMOGLOBIN 29.2 pg (27.0-31.0); MEAN CORPUSCULAR HGB CONC 33.7 g/dL (32.0-36.0); MEAN CORPUSCULAR VOLUME 86.7 fL (81.0-99.0); MEAN PLATELET VOLUME 10.1 fL (7.9-10.8); MONOCYTES # (AUTO) 0.8 10^3/uL (0.0-1.0); MONOCYTES % (AUTO) 7.4 %; NEUTROPHILS # (AUTO) 7.1 10^3/uL (1.5-6.6); NEUTROPHILS % (AUTO) 70.8 %; PLT - PLATELET COUNT 311 10^3/uL (130-450); RED BLOOD COUNT 4.59 10^6/uL (4.20-5.40); RED CELL DISTRIBUTION WIDTH 14.5 % (12.0-15.0); WHITE BLOOD COUNT 10.1 x10^3/uL (4.8-10.8)
[2024-10-03 04:50] LABS: CALCIUM, IONIZED 1.09 mmol/L (1.15-1.33); VBG PH 7.478 (7.31-7.41)
[2024-10-03 04:57] LABS: MAGNESIUM 2.2 mg/dL (1.7-2.3)
[2024-10-03 05:03] LABS: CALCIUM 9.4 mg/dL (8.5-10.3); CREATININE 0.5 mg/dL (0.6-1.3); POTASSIUM 3.8 mmol/L (3.5-4.5)
[2024-10-03] MEDS: diltiaZEM INJ 125 MG in DEXTROSE 5% 100 ML IV SCH (07:44)
--- NOTE | 2024-10-03 08:04 | PROVIDER PROGRESS NOTE ---
Subjective Prog Note Date Prog Note Date: 10/03/24 Prog Note Time: 15:21 Subjective Pt reports feeling: Improved Subjective: Chart review shows the patient to have gone into atrial fibrillation in May 2015. Echocardiogram at that time showed normal ejection fraction, no significant valvular heart disease, and a normal left atrial size. Subsequent to that she has had multiple encounters in the emergency room for A-fib with RVR. With this current encounter she was electrically cardioverted twice in the ER and would going to sinus but immediately go back and this A-fib. Overnight the telehealth physician put her on a diltiazem drip in the emergency room.. She is on oral metoprolol. In spite of that her pulse rate is still in the 130s. She was 62 years ago. Her a year ago from age and heart failure. 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 She is a former smoker that smoked up to 4 packs/day for 10 years and quit in 1980. She has not smoked since. She has no history of alcohol abuse or recreational substance abuse. 1 son lives in [facility]). Family history: Mom of [place] at age 81. Sister had coronary artery disease. (She has 2 sisters that are twins and a brother). Father lived until he was 95 and very healthy. 1 son is healthy. Current Medications Current Medications Current Medications: Current Medications Generic Name Dose Route Start Last Admin Trade Name Freq PRN Reason Stop Dose Admin Acetaminophen 650 mg 10/02/24 20:54 Acetaminophen 325 Mg Tablet PO Q4HR PRN Pain 1 to 4, or Fever Apixaban 5 mg 10/03/24 09:00 10/03/24 08:14 Apixaban 5 Mg Tablet PO 5 mg DAILY CHANDRAKANT Administration Atorvastatin Calcium 10 mg 10/02/24 21:00 10/03/24 08:14 Atorvastatin 10 Mg Tablet PO 10 mg BID CHANDRAKANT Administration Digoxin 250 mcg 10/03/24 09:00 10/03/24 12:36 Digoxin 500 Mcg/2 Ml Amp IVP 10/03/24 21:01 250 mcg QID CHANDRAKANT Administration Diltiazem HCl 125 mg/ Dextrose 125 mls @ 5 mls/hr 10/03/24 07:00 10/03/24 13:30 IV 0 mg/hr .Q25H CHANDRAKANT 0 mls/hr Titration Protocol 5 MG/HR Lisinopril 30 mg 10/03/24 09:00 10/03/24 08:14 Lisinopril 5 Mg Tablet PO 30 mg DAILY CHANDRAKANT Administration Metoprolol Tartrate 25 mg 10/02/24 21:00 10/03/24 08:14 Metoprolol Tartrate 25 Mg Tablet PO 25 mg BID CHANDRAKANT Administration Ondansetron HCl 4 mg 10/02/24 20:54 Ondansetron 4 Mg/2 Ml Vial IVP Q6HR PRN Nausea / Vomiting Patient Own Med ( 1 each 10/03/24 09:00 10/03/24 08:50 Restasis) EACHEYE Not Given BID CHANDRAKANT Sodium Chloride 10 ml 10/03/24 01:00 10/03/24 08:15 Sodium Chloride Flush 0.9% 10 Ml Syringe IVP 10 ml 0100,0900,1700 CHANDRAKANT Administration Sodium Chloride 10 ml 10/02/24 20:54 Sodium Chloride Flush 0.9% 10 Ml Syringe IVP PRN PRN NEEDED PER PROVIDER ORDERS Objective Vital Signs/Intake & Output Reviewed Vital Signs: Yes Vital Signs: Vital Signs Temp Pulse Resp BP Pulse Ox 10/03/24 15:00 57 L 16 129/67 97 10/03/24 14:00 70 22 149/67 H 97 10/03/24 13:00 123 H 21 112/75 97 10/03/24 12:00 36.6 C 137 H 20 114/93 H 98 Intake & Output: Intake & Output 10/01/24 10/02/24 10/03/24 10/04/24 05:59 05:59 05:59 05:59 Intake Total 1570 / 1570 1082 / 1082 Output Total 1100 / 1100 400 / 400 Balance 470 / 470 682 / 682 Weight (kg) 70.5 kg Objective General Appearance: positive No acute distress, Alert and Other (A short statured thin elderly female who is well-groomed, and appears younger than stated age. She is 5 foot 1 is tall, 70.5 kg. Lucid, able to carry on a full conversation without use of accessory muscles.) Eyes Bilateral: positive PERRL and EOMI Neck: positive Nml inspection, Thyroid nml and No JVD Respiratory: positive No respiratory distress and Breath sounds nml Cardiovascular: positive Regular rate & rhythm (Heart rate was still in the 120s when I got her this morning. She is converted to sinus rhythm and heart rate is now 70.), No gallop and Systolic murmur Abdomen: positive Non-tender, No organomegaly and Nml bowel sounds Skin: positive Color nml, Warm and Dry Extremities: positive Non-tender, Full ROM and Nml appearance Neurologic/Psychiatric: positive Oriented x3, CN's nml (2-12) and Motor nml Lab Results 10/03/24 04:19 10/03/24 04:19 Other Labs: Lab Results x24hrs 10/03/24 10/02/24 10/02/24 Range/Units 04:19 22:24 21:30 WBC 10.1 (4.8-10.8) x10^3/uL RBC 4.59 (4.20-5.40) 10^6/uL Hgb 13.4 (12.0-16.0) g/dL Hct 39.8 (37.0-47.0) % MCV 86.7 (81.0-99.0) fL MCH 29.2 (27.0-31.0) pg MCHC 33.7 (32.0-36.0) g/dL RDW 14.5 (12.0-15.0) % Plt Count 311 (130-450) 10^3/uL MPV 10.1 (7.9-10.8) fL Neut # (Auto) 7.1 H (1.5-6.6) 10^3/uL Lymph # (Auto) 2.1 (1.5-3.5) 10^3/uL [place] # (Auto) 0.8 (0.0-1.0) 10^3/uL Eos # (Auto) 0.1 (0.0-0.7) 10^3/uL Baso # (Auto) 0.0 (0.0-0.1) 10^3/uL Absolute Nucleated RBC 0.00 x10^3/uL Nucleated RBC % 0.0 /100WBC VBG pH 7.478 H (7.31-7.41) Ionized Calcium 1.09 L (1.15-1.33) mmol/L Sodium 135 (135-145) mmol/L Potassium 3.8 (3.5-4.5) mmol/L Chloride 104 (101-111) mmol/L Carbon Dioxide 22 (21-32) mmol/L Anion Gap 9.0 (6-13) BUN 11 (6-20) mg/dL Creatinine 0.5 L (0.6-1.3) mg/dL Estimated GFR (MDRD) 117 (>89) Glucose 109 H (74-104) mg/dL Calcium 9.4 (8.5-10.3) mg/dL Phosphorus 3.2 (2.5-5.0) mg/dL Magnesium 2.2 (1.7-2.3) mg/dL Total Bilirubin (0.2-1.0) mg/dL AST (10-42) IU/L ALT (10-60) IU/L Alkaline Phosphatase (42-121) IU/L Total Protein (6.4-8.9) g/dL Albumin (3.2-5.5) g/dL Globulin (2.1-4.2) g/dL Albumin/Globulin Ratio (1.0-2.2) Lipase (11-82) U/L Nasal Screen MRSA (PCR) NEGATIVE (NEGATIVE) Blood Type A POSITIVE Blood Type Recheck A POSITIVE Antibody Screen NEGATIVE 10/02/24 Range/Units 19:11 WBC 9.8 (4.8-10.8) x10^3/uL RBC 4.98 (4.20-5.40) 10^6/uL Hgb 14.5 (12.0-16.0) g/dL Hct 42.8 (37.0-47.0) % MCV 85.9 (81.0-99.0) fL MCH 29.1 (27.0-31.0) pg MCHC 33.9 (32.0-36.0) g/dL RDW 14.3 (12.0-15.0) % Plt Count 301 (130-450) 10^3/uL MPV 10.0 (7.9-10.8) fL Neut # (Auto) 5.9 (1.5-6.6) 10^3/uL Lymph # (Auto) 3.1 (1.5-3.5) 10^3/uL [place] # (Auto) 0.6 (0.0-1.0) 10^3/uL Eos # (Auto) 0.1 (0.0-0.7) 10^3/uL Baso # (Auto) 0.1 (0.0-0.1) 10^3/uL Absolute Nucleated RBC 0.00 x10^3/uL Nucleated RBC % 0.0 /100WBC VBG pH (7.31-7.41) Ionized Calcium (1.15-1.33) mmol/L Sodium 136 (135-145) mmol/L Potassium 3.5 (3.5-4.5) mmol/L Chloride 100 L (101-111) mmol/L Carbon Dioxide 24 (21-32) mmol/L Anion Gap 12.0 (6-13) BUN 13 (6-20) mg/dL Creatinine 0.8 (0.6-1.3) mg/dL Estimated GFR (MDRD) 68 L (>89) Glucose 114 H (74-104) mg/dL Calcium 9.7 (8.5-10.3) mg/dL Phosphorus 3.5 (2.5-5.0) mg/dL Magnesium 1.8 (1.7-2.3) mg/dL Total Bilirubin 0.7 (0.2-1.0) mg/dL AST 19 (10-42) IU/L ALT 17 (10-60) IU/L Alkaline Phosphatase 101 (42-121) IU/L Total Protein 7.1 (6.4-8.9) g/dL Albumin 4.7 (3.2-5.5) g/dL Globulin 2.4 (2.1-4.2) g/dL Albumin/Globulin Ratio 2.0 (1.0-2.2) Lipase 21 (11-82) U/L Nasal Screen MRSA (PCR) (NEGATIVE) Blood Type Blood Type Recheck Antibody Screen ABX Reporting Has patient been on IV antibiotics over the past 48 hours?: No Assessment/Plan Problem List (1) Atrial fibrillation with RVR: Impression: Discharge note: Already on diltiazem drip. Metoprolol 25 mg p.o. twice daily. Is already anticoagulated with apixaban. I Added digoxin 0.25 mg IV push and anticipated doing 4 doses. The patient converted after the second dose. Telemetry did report a 7-second pause but when I spoke to the nurse about this pause, the patient was on the phone, speaking to a friend and completely asymptomatic. I also tried reaching her program project analyst Dr.Ameet Covarrubias with [facility]. Nurse Uche did return my phone call from [phone]. However I was in doing a stress test when he called. I called him back, we played phone tag. In the middle of all this the patient converted to sinus rhythm. She feels completely stable. She has no chest pain, palpitations, shortness of breath. As such I feel she is stable for discharge. I would like her to follow-up with her program project analyst. I would also like her to follow-up with her primary care provider for continuity of care.She may need an increase in her metoprolol in the outpatient setting.I have asked her to resume her medication and discuss this with her program project analyst. (2) Hypertension: Impression: At home she is on lisinopril 30 mg daily, metoprolol 25 mg p.o. twice daily. At this time she is being resumed on metoprolol but I held off on the lisinopril since her blood pressure is 123/82.At discharge, she may take her lisinopril tomorrow. (3) Hyperlipidemia: Impression: I resumed her atorvastatin 10 mg p.o. Interesting that her dosing is twice daily per her recollection. Pharmacy will verify this morning. (4) Do not resuscitate status: Impression: Please see advance care planning conversation under separate dictation. POLST form filled out.
[2024-10-03] MEDS: DIGOXIN 500 MCG/2 ML AMP IVP SCH (08:14)
[2024-10-03] MEDS: CALCIUM CARBONATE CHEW 500 MG TABLET PO SCH (08:14)
[2024-10-03] MEDS: lisinopriL 5 MG TABLET PO SCH (08:14)
[2024-10-03] MEDS: APIXABAN 5 MG TABLET PO SCH (08:14)
[2024-10-03] MEDS: RESTASIS EACHEYE SCH (08:50)
[2024-10-03] MEDS: POTASSIUM CHLORIDE 20 MEQ TABLET PO ONE (10:13)
[2024-10-03 13:09] VITALS: O2SAT 97
--- NOTE | 2024-10-03 14:52 | ADVANCE CARE PLANNING NOTE ---
Advance Care Planning Planning Encounter Date: 10/03/24 Time: 13:30 Purpose: Establish CODE STATUS Parties in Attendance: Patient and hospitalist Decisional Capacity of the Patient: Alert and oriented to person, place, time and situation. She states that she is still decisional for her own healthcare and finances. Diagnosis for Encounter (1) Atrial fibrillation with RVR: Summary: Long history of atrial fibrillation. Intermittent episodes that are uncontrolled requiring ER visits. Is followed by Patel Covarrubias with [facility] in [facility]. Encounter Subjective/Patient's Story: Patient was [place] the [facility]. Has spent many years traveling because of her 's job with the [employer]. 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 [place] ended up here [place] the [place] for the last 20 years because that is where they retired. She sometimes work part-time at [employer]. She has 1 son and he lives in [facility]. He is her DPOA. She is thinking about the future and needing to be closer to him so she may be moving to [facility] [place] in the next year. Possibly by the spring 2024. She does not need any durable medical equipment at this point in her life. She is without pain and discomfort for the most part. Her main irritation is her atrial fibrillation. When we discussed her quality of life, limitations, etc., she is a very healthy person who still can do what she would like to do. She drives. Pays bills. Gardens. Sees her girlfriends. Does things that make her happy. She is very content within her life. At first she wanted to be a fully resuscitated person with regards to if she did not have a pulse or pressure. I described her full resuscitative effort. The statistics surrounding survivability of CPR, electric cardioversions, intubation. I carefully explained that DO NOT RESUSCITATE does not mean do not treat. We would certainly offer her every benefit of blood transfusions, antibiotics, necessary surgery, etc. However, if in spite of our best efforts she loses pulse or pressure, that is when DO NOT RESUSCITATE would apply. When she understood that, the patient decided that she would prefer to be DO NOT RESUSCITATE and wanted a POLST form filled out. Objective/Medical Story: Mrs. Marino presented to the ED for heart palpatation and tachycardia. She was found to be in afib with RVR by EMS. she has a history of Afib and is on metoprolol and eliquis. she endorses compliance. she denies any precipitating factors. She explained that she has occasional episodes when her heart rate will increase, but usually resolves within a short period of time. Tonight however her rapid heart rate was persistent. She denies any associated chest pain, shortness of breath or dizziness. In route to the ED she received 2 boluses of diltiazem with no improvement to her heart rate or rhythm. In the ED she underwent cardioversion x 2 that was unsuccessful in achieving sustained NSR. I discussed with the ED physician, and due to her persistent arrhythmia and uncontrolled heart rate I agreed to admit her for further management of her afib RVR. Patient was seen at bedside, plan to admit for continued management with the initiation of a continuos Cardizem drip and monitoring in the ICU was discussed with the patient. She agreed to the plan of care and admission. this visit was performed using telemedicine tools including phone and live-video. patient provided consent to proced with this visit using the available telemedicine modalities. She was transferred to ICU and the diltiazem drip was continued. Her metoprolol p.o. was resumed. And I added IV digitalis and she received 1 dose. She abruptly converted to sinus rhythm and is ready to go home. Goals of Care: To maintain her current independent lifestyle Plan: 1. Fill out POLST form today for DO NOT RESUSCITATE status 2. Follow-up with primary care provider for routine follow-up. 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 Code Status: Do Not Attempt Resuscitation Time spent on advance care plannin minutes
--- NOTE | 2024-10-03 15:26 | PHARMACY PROGRESS NOTE ---
Best Possible Medication History Admit Date and Time: 10/02/242053 Home Medications Medication Instructions Recorded Confirmed Type lisinopril 10 mg tablet 30 mg PO DAILY 06/09/15 10/03/24 History apixaban 5 mg tablet (Eliquis) 5 mg PO BID 06/18/21 10/03/24 History atorvastatin 10 mg tablet 10 mg PO QPM 06/18/21 10/03/24 History cyclosporine 0.05 % eye drops 1 drp EACHEYE BID 06/18/21 10/03/24 History (Restasis MultiDose) metoprolol tartrate 25 mg tablet 25 mg PO BID 06/18/21 10/03/24 History Processed by: Pharmacy (Medication Reconciliation completed by Inside Account [employer]) Medications reviewed in ED?: No Medication History completed: Yes Patient Interview: Completed [facility] Statement: As the person ultimately responsible for medication therapy, providers are able to order a medication from an existing home medication list in [facility] via the "Reconcile Routine" prior to Confirmation of that medication by underwriting support specialist. Such practice is discouraged except when the physician, in their clinical judgment, deems that a medical need exists for a medication without regard to previous use.
== END 2024-10-03 15:43 | disposition home or self-care (01) ==
LOC: ED 19:30 → ICU 19:30
PROVIDERS: ADMIT Hospitalist; ATTEND Hospitalist
DX: E78.5 Hyperlipidemia, unspecified; I10 Essential (primary) hypertension; Z66 Do not resuscitate; I48.91 Unspecified atrial fibrillation; Z79.01 Long term (current) use of anticoagulants; R00.0 Tachycardia, unspecified